=== PATIENT | female | born 1950 | race Caucasian/White ===

== ENCOUNTER 2016-08-14 18:17 | Inpatient (IN) | payer MEDICARE ==
--- NOTE | 2016-08-14 18:33 | ED ---
General Adult HPI - General Chief complaint: Neuro Symptoms/Deficit Stated complaint: left side numbness Time Seen by Provider: 08/14/16 18:25 Source: patient, EMS, RN notes reviewed, old records reviewed Mode of arrival: EMS - History of Present Illness Initial comments: This is a 66-year-old female ER for evaluation. This patient presents for evaluation of CVA type symptoms. Patient has no high blood pressure or cholesterol no diabetes or no risk factors for CVA no prior history of CVA. Patient takes no medications. Patient coming in with left-sided weakness left sided facial droop noted by family, 3 different times seen in a detention did resolve. Patient denies any complaints at this time, symptoms are resolved and patient brought here by family. - Related Data Home Medications Medication Instructions Recorded Confirmed Calcium Carbonate/Vitamin D3 1 tab PO DAILY 08/14/16 08/14/16 [Calcium 500-Vit D3 600 Tablet] Multivitamins, Thera [Multivitamin] 1 tab PO DAILY 08/14/16 08/14/16 Mize-3 Fatty Acids/Fish Oil [Fish 1 cap PO DAILY 08/14/16 08/14/16 Oil 1,000 mg Softgel] Omeprazole 20 mg PO DAILY 08/14/16 08/14/16 Potassium 99 mg PO DAILY 08/14/16 08/14/16 Allergies Allergy/AdvReac Type Severity Reaction Status Date / Time Sulfa (Sulfonamide Allergy Rash/Hives Verified 08/14/16 19:14 Antibiotics) Review of Systems ROS Statement: Those systems with pertinent positive or pertinent negative responses have been documented in the HPI. ROS Other: All systems not noted in ROS Statement are negative. Past Medical History Past Medical History: No Reported History History of Any Multi-Drug Resistant Organisms: None Reported Past Surgical History: No Surgical Hx Reported Past Psychological History: No Psychological Hx Reported Smoking Status: Former smoker Past Alcohol Use History: None Reported Past Drug Use History: None Reported General Exam General appearance: alert, in no apparent distress Head exam: Present: atraumatic, normocephalic, normal inspection Eye exam: Present: normal appearance, PERRL, EOMI. Absent: scleral icterus, conjunctival injection, periorbital swelling ENT exam: Present: normal exam, mucous membranes moist Neck exam: Present: normal inspection. Absent: tenderness, meningismus, lymphadenopathy Respiratory exam: Present: normal lung sounds bilaterally. Absent: respiratory distress, wheezes, rales, rhonchi, stridor Cardiovascular Exam: Present: regular rate, normal rhythm, normal heart sounds. Absent: systolic murmur, diastolic murmur, rubs, gallop, clicks GI/Abdominal exam: Present: soft, normal bowel sounds. Absent: distended, tenderness, guarding, rebound, rigid Extremities exam: Present: normal inspection, full ROM, normal capillary refill. Absent: tenderness, pedal edema, joint swelling, calf tenderness Back exam: Present: normal inspection Neurological exam: Present: alert, oriented X3, CN II-XII intact Psychiatric exam: Present: normal affect, normal mood Skin exam: Present: warm, dry, intact, normal color. Absent: rash Course Vital Signs 08/14/16 08/14/16 18:23 19:30 Temperature 97.7 F Pulse Rate 74 72 Respiratory 18 16 Rate Blood Pressure 171/93 141/94 O2 Sat by Pulse 96 98 Oximetry - Reevaluation(s) Reevaluation #1: 08/14/16 20:04 Patient remains asymptomatic EKG Findings - EKG Comments: EKG Findings:: EKG shows normal sinus her wrist, [place] 136, QRS 98, QTC 427 Medical Decision Making - Medical Decision Making 66 female here for evaluation of CVA type symptoms, patient left-sided weakness numbness and facial droop. Patient will be admitted is TIA is also symptoms are resolved this time, but on aspirin with neurological evaluation, patient also found to have urinary tract infection which will she with antibiotics - Lab Data Result diagrams: 08/14/16 19:09 08/14/16 19:09 Lab Results 08/14/16 08/14/16 08/14/16 Range/Units 19:09 19:09 19:09 WBC 16.3 H (3.8-10.6) k/uL RBC 4.40 (3.80-5.40) m/uL Hgb 13.9 (11.4-16.0) gm/dL Hct 41.6 (34.0-46.0) % MCV 94.6 (80.0-100.0) fL MCH 31.6 (25.0-35.0) pg MCHC 33.4 (31.0-37.0) g/dL RDW 13.1 (11.5-15.5) % Plt Count 264 (150-450) k/uL Neutrophils % 85 % Lymphocytes % 9 % Monocytes % 3 % Eosinophils % 1 % Basophils % 0 % Neutrophils # 13.8 H (1.3-7.7) k/uL Lymphocytes # 1.5 (1.0-4.8) k/uL Monocytes # 0.5 (0-1.0) k/uL Eosinophils # 0.1 (0-0.7) k/uL Basophils # 0.1 (0-0.2) k/uL PT 10.1 (9.0-12.0) sec INR 1.0 (<1.1) APTT 23.2 (22.0-30.0) sec Sodium 137 (137-145) mmol/L Potassium 4.1 (3.5-5.1) mmol/L Chloride 103 (98-107) mmol/L Carbon Dioxide 25 (22-30) mmol/L Anion Gap 9 mmol/L BUN 10 (7-17) mg/dL Creatinine 0.56 (0.52-1.04) mg/dL Est GFR (MDRD) Af Amer >60 (>60 ml/min/1.73 sqM) Est GFR (MDRD) Non-Af >60 (>60 ml/min/1.73 sqM) Glucose 120 H (74-99) mg/dL Calcium 10.0 (8.4-10.2) mg/dL Phosphorus 3.3 (2.5-4.5) mg/dL Magnesium 1.9 (1.6-2.3) mg/dL Total Bilirubin 0.4 (0.2-1.3) mg/dL AST 23 (14-36) U/L ALT 42 (9-52) U/L Alkaline Phosphatase 108 (38-126) U/L Total Creatine Kinase (30-135) U/L CK-MB (CK-2) (0.0-2.4) ng/mL CK-MB (CK-2) Rel Index Troponin I (0.000-0.034) ng/mL Total Protein 7.0 (6.3-8.2) g/dL Albumin 4.3 (3.5-5.0) g/dL Urine Color Urine Appearance (Clear) Urine pH (5.0-8.0) Ur Specific Hutchinson (1.001-1.035) Urine Protein (Negative) Urine Glucose (UA) (Negative) Urine Ketones (Negative) Urine Blood (Negative) Urine Nitrate (Negative) Urine Bilirubin (Negative) Urine Urobilinogen (<2.0) mg/dL Ur Leukocyte Esterase (Negative) Urine RBC (0-5) /hpf Urine WBC (0-5) /hpf Urine Bacteria (None) /hpf Hyaline Casts (0-2) /lpf Urine Yeast (Budding) (None) /hpf 08/14/16 08/14/16 Range/Units 19:09 19:35 WBC (3.8-10.6) k/uL RBC (3.80-5.40) m/uL Hgb (11.4-16.0) gm/dL Hct (34.0-46.0) % MCV (80.0-100.0) fL MCH (25.0-35.0) pg MCHC (31.0-37.0) g/dL RDW (11.5-15.5) % Plt Count (150-450) k/uL Neutrophils % % Lymphocytes % % Monocytes % % Eosinophils % % Basophils % % Neutrophils # (1.3-7.7) k/uL Lymphocytes # (1.0-4.8) k/uL Monocytes # (0-1.0) k/uL Eosinophils # (0-0.7) k/uL Basophils # (0-0.2) k/uL PT (9.0-12.0) sec INR (<1.1) APTT (22.0-30.0) sec Sodium (137-145) mmol/L Potassium (3.5-5.1) mmol/L Chloride (98-107) mmol/L Carbon Dioxide (22-30) mmol/L Anion Gap mmol/L BUN (7-17) mg/dL Creatinine (0.52-1.04) mg/dL Est GFR (MDRD) Af Amer (>60 ml/min/1.73 sqM) Est GFR (MDRD) Non-Af (>60 ml/min/1.73 sqM) Glucose (74-99) mg/dL Calcium (8.4-10.2) mg/dL Phosphorus (2.5-4.5) mg/dL Magnesium (1.6-2.3) mg/dL Total Bilirubin (0.2-1.3) mg/dL AST (14-36) U/L ALT (9-52) U/L Alkaline Phosphatase (38-126) U/L Total Creatine Kinase 40 (30-135) U/L CK-MB (CK-2) 0.8 (0.0-2.4) ng/mL CK-MB (CK-2) Rel Index 2.0 Troponin I <0.012 (0.000-0.034) ng/mL Total Protein (6.3-8.2) g/dL Albumin (3.5-5.0) g/dL Urine Color Yellow Urine Appearance Cloudy H (Clear) Urine pH 7.5 (5.0-8.0) Ur Specific Hutchinson 1.008 (1.001-1.035) Urine Protein Negative (Negative) Urine Glucose (UA) Negative (Negative) Urine Ketones Negative (Negative) Urine Blood Negative (Negative) Urine Nitrate Negative (Negative) Urine Bilirubin Negative (Negative) Urine Urobilinogen <2.0 (<2.0) mg/dL Ur Leukocyte Esterase Large H (Negative) Urine RBC 3 (0-5) /hpf Urine WBC 57 H (0-5) /hpf Urine Bacteria Rare H (None) /hpf Hyaline Casts 2 (0-2) /lpf Urine Yeast (Budding) Many H (None) /hpf - Radiology Data Radiology results: report reviewed (CT brain negative for acute disease), image reviewed Disposition Clinical Impression: Transient cerebral ischemia, UTI (urinary tract infection) Disposition: ADMITTED IP TO THIS [facility] Condition: Fair Referrals: Reno Escoto DO [Primary Care Provider] - 1-2 days
[2016-08-14] MEDS ORDERED: SODIUM CHLORIDE 0.9% 500 ML IV STA (18:35)
--- NOTE | 2016-08-14 19:02 | CT ---
EXAMINATION TYPE: CT brain wo con DATE OF EXAM: 08/14/2016 6:53 PM COMPARISON: NONE HISTORY: Pt states of left side numbness today. CT DLP: 1049.[address] of the brain was performed. The ventricles, basal cisterns and sulci overlying the cerebral convexities demonstrate mild enlargem ent. There is no evidence for intracranial hemorrhage or sulcal effacement. There is decreased attenuation about the periventricular white matter and deep white matter of both c erebral hemispheres, compatible with chronic small vessel ischemia. Differential diagnosis does inclu de demyelination. No mass effects are seen.No midline shift. Osseous calvarium is intact. If symptoms persist consider MRI. IMPRESSION: 1. Age related atrophic and chronic small vessel ischemic change without acute intracranial process s een at this time.
[2016-08-14 19:24] LABS: Basophils # (A) 0.1 k/uL (0-0.2); Basophils % (A) 0 %; CH 31.4; CHCM 33.3; Eosinophils # (A) 0.1 k/uL (0-0.7); Eosinophils % (A) 1 %; HCT 41.6 % (34.0-46.0); HDW 2.67; HGB 13.9 gm/dL (11.4-16.0); Luc # (Auto) 0.29; Luc % (Auto) 2; Lymphocytes # (A) 1.5 k/uL (1.0-4.8); Lymphocytes % (A) 9 %; MCH 31.6 pg (25.0-35.0); MCHC 33.4 g/dL (31.0-37.0); MCV 94.6 fL (80.0-100.0); Mean Platelet Volume 7.8; Monocytes # (A) 0.5 k/uL (0-1.0); Monocytes % (A) 3 %; Neutrophils # (A) 13.8 k/uL (1.3-7.7); Neutrophils % (A) 85 %; RDW 13.1 % (11.5-15.5); WBC 16.3 k/uL (3.8-10.6); WBC (Perox) 16.97
[2016-08-14 19:39] LABS: Partial Thromboplastin Time 23.2 sec (22.0-30.0); Prothrombin Time 10.1 sec (9.0-12.0)
[2016-08-14 19:41] LABS: ALT 42 U/L (9-52); AST 23 U/L (14-36); Alkaline Phosphatase 108 U/L (38-126); Anion Gap 9 mmol/L; Blood Urea Nitrogen 10 mg/dL (7-17); Carbon Dioxide 25 mmol/L (22-30); Chloride 103 mmol/L (98-107); Glucose 120 mg/dL (74-99); Magnesium 1.9 mg/dL (1.6-2.3); Non-African American GFR(MDRD) >60 (>60 ml/min/1.73 sqM); Phosphorous 3.3 mg/dL (2.5-4.5); Potassium 4.1 mmol/L (3.5-5.1); Sodium 137 mmol/L (137-145); Total Bilirubin 0.4 mg/dL (0.2-1.3)
[2016-08-14 19:48] LABS: Creatine Kinase 40 U/L (30-135)
[2016-08-14 19:55] LABS: Appearance,Urine Cloudy (Clear); Bacteria,Urine Rare /hpf; Bilirubin,Urine Negative (Negative); Glucose,Urine (UA) Negative (Negative); Ketones,Urine Negative (Negative); Leukocyte Esterase,Urine Large (Negative); Nitrite,Urine Negative (Negative); PH, Urine 7.5 (5.0-8.0); Particle Count 14116; Protein,Urine Negative (Negative); RBC,Urine 3 /hpf (0-5); Specific Gravity,Urine 1.008 (1.001-1.035); UA Billing (MACRO vs. MICRO) MICRO; Urobilinogen,Urine <2.0 mg/dL (<2.0); WBC,Urine 57 /hpf (0-5)
[2016-08-14 20:01] LABS: Creatine Kinase MB 0.8 ng/mL (0.0-2.4); Troponin I <0.012 ng/mL (0.000-0.034)
[2016-08-14] MEDS ORDERED: ASPIRIN 325 MG TAB PO STA (20:02)
[2016-08-14] MEDS: SODIUM CHLORIDE 0.9% 1,000 ML IV SCH (20:19)
[2016-08-14 21:59] VITALS: RESP 18; BMI 29.5
[2016-08-15] MEDS: SODIUM CHLORIDE 0.9% 1,000 ML IV SCH (06:19)
[2016-08-15] MEDS ORDERED: ASPIRIN 325 MG TAB PO SCH (09:00)
[2016-08-15 09:05] VITALS: PULSE 80
--- NOTE | 2016-08-15 09:34 | ECHOF ---
Referral Reason:Thrombus MEASUREMENTS -------- HEIGHT: 162.6 cm WEIGHT: 77.6 kg BP: 142/81 RVIDd: 2.3 cm (< 3.3) IVSd: 0.8 cm (0.6 - 1.1) LVIDd: 4.9 cm (3.9 - 5.3) LVPWd: 1.0 cm (0.6 - 1.1) IVSs: 1.7 cm LVIDs: 3.4 cm LVPWs: 1.4 cm LA Diam: 2.8 cm (2.7 - 3.8) LAESV Index (A-L): 26.74 ml/m Ao Diam: 3.0 cm (2.0 - 3.7) AV Cusp: 1.4 cm (1.5 - 2.6) LA Diam: 2.8 cm (2.7 - 3.8) MV EXCURSION: 12.842 mm (> 18.000) MV EF SLOPE: 32 mm/s (70 - 150) EPSS: 0.5 cm MV E Tera: 0.96 m/s MV DecT: 234 ms MV A Tera: 1.16 m/s MV E/A Ratio: 0.83 FINDINGS -------- Sinus rhythm. This was a technically good study. Left ventricular wall thickness is normal. Overall left ventricular systolic function is normal with, an EF between 55 - 60 %. The right ventricle is normal in size. Normal LA size by volume 22+/-6 ml/m2. The right atrium is normal in size. Aortic valve is trileaflet and is mildly thickened. The mitral valve leaflets are mildly thickened. Mild mitral annular calcification present. Trace tricuspid regurgitation present. Pulmonic valve appears structurally normal. The aortic root size is normal. Normal inferior vena cava with normal inspiratory collapse consistent with estimated right atrial pressure of 5 mmHg. Echo free space may represent effusion or a pericardial fat pad. CONCLUSIONS -------- 1. Sinus rhythm. 2. Mild mitral annular calcification present. 3. Trace tricuspid regurgitation present. 4. Pulmonic valve appears structurally normal. 5. The aortic root size is normal. 6. Normal inferior vena cava with normal inspiratory collapse consistent with estimated right atrial pressure of 5 mmHg. 7. Echo free space may represent effusion or a pericardial fat pad. 8. This was a technically good study. 9. Left ventricular wall thickness is normal. 10. Overall left ventricular systolic function is normal with, an EF between 55 - 60 %. 11. The right ventricle is normal in size. 12. Normal LA size by volume 22+/-6 ml/m2. 13. The right atrium is normal in size. 14. Aortic valve is trileaflet and is mildly thickened. 15. The mitral valve leaflets are mildly thickened. SENIOR PROGRAMMER: Alison Alba RDCS
--- NOTE | 2016-08-15 10:14 | US ---
EXAMINATION TYPE: US carotid duplex BILAT DATE OF EXAM: 08/15/2016 9:51 AM COMPARISON: NONE CLINICAL HISTORY: Stenosis. EXAM MEASUREMENTS: RIGHT: Peak Systolic Velocity (PSV) cm/sec ----- Right CCA: 86.6 ----- Right ICA: 130.3 ----- Right ECA: 99.3 ICA/CCA ratio: 1.5 RIGHT: End Diastole cm/sec ----- Right CCA: 32.6 ----- Right ICA: 34.9 ----- Right ECA: 18.4 LEFT: Peak Systolic Velocity (PSV) cm/sec ----- Left CCA: 86.6 ----- Left ICA: 109.3 ----- Left ECA: 82.4 ICA/CCA ratio: 1.3 LEFT: End Diastole cm/sec ----- Left CCA: 23.8 ----- Left ICA: 33.3 ----- Left ECA: 20.5 VERTEBRALS (direction of flow): Right Vertebral: Antegrade Left Vertebral: not visualized No significant atheromatous change. Grayscale, color Doppler, spectral Doppler imaging performed of the carotid arteries IMPRESSION: No hemodynamic significant stenosis of the proximal internal carotid arteries bilaterall y by Doppler criteria, and indirect measurement of carotid stenosis
[2016-08-15] MEDS ORDERED: FLUCONAZOLE 100 MG TAB PO ONE (12:29)
[2016-08-15 13:00] VITALS: BP 146/88; TEMP 98.5
--- NOTE | 2016-08-15 14:13 | HP ---
HISTORY AND PHYSICAL/DISCHARGE SUMMARY DATE OF ADMISSION: A 66-year-old female who came in came in with complaints of tingling and numbness in the left arm, lasted for a few minutes, followed by tingling and numbness in the left leg, followed by left-sided facial tingling, numbness. All of which resolved within 5 minutes. Patient denied any slurred speech. Patient denied any fever, chills, nausea, vomiting. Denied any dysuria. Patient is found to have some elevated WBC count in the urine because of which patient was diagnosed with UTI and was admitted here on Rocephin and also patient is admitted for rule out TIA and a CVA. Patient does not take any aspirin. Patient does not have any history of diabetes mellitus, hypertension, or hyperlipidemia although lipid panel was not tested here. Patient's previous lipid panel was essentially within normal limits. Patient had a carotid Doppler and echocardiogram, essentially within normal limits. Patient will be discharged today with aspirin and a low dose of statin until LDL is done as an outpatient. Patient will follow with Neurology as an outpatient. REVIEW OF SYSTEMS: CONSTITUTIONAL: No fever, no malaise, no fatigue. HEENT: No recent visual problems or hearing problems. Denied any sore throat. CARDIOVASCULAR: No chest pain, orthopnea, PND, no palpitations, no syncope. PULMONARY: No shortness of breath, no cough, no hemoptysis. GASTROINTESTINAL: No diarrhea, no nausea, no vomiting, no abdominal pain. Normoactive bowel sounds. NEUROLOGICAL: As described in HPI. HEMATOLOGICAL: Denies any bleeding or petechiae. GENITOURINARY: Denies any burning micturition, frequency, or urgency. MUSCULOSKELETAL/RHEUMATOLOGICAL: Denies any joint pain, swelling, or any muscle pain. ENDOCRINE: Denies any polyuria or polydipsia. The rest of the 14 point review of systems is negative. HOME MEDICATIONS: 1. Calcium carbonate. 2. Vitamin D3. 3. Multivitamin. 4. Gaffney 3 fatty acids. 5. Omeprazole. 6. Potassium. 7. Sulfa drugs. PAST MEDICAL HISTORY: No significant past medical history. SOCIAL HISTORY: Former smoker. Quit smoking years ago. Denied any alcohol abuse or any drug abuse. FAMILY HISTORY: The patient is adopted, because of which patient's family history is unknown. PHYSICAL EXAMINATION: Temperature 98.0, pulse of 80, respiratory rate of 18, blood pressure is 150/90, lowest blood pressure is around 125/71. GENERAL: The patient is alert and oriented x3, not in any acute distress. Well developed, well nourished. HEENT: Pupils are round and equally reacting to light. EOMI. No scleral icterus. No conjunctival pallor. Normocephalic, atraumatic. No pharyngeal erythema. No thyromegaly. CARDIOVASCULAR: S1 and S2 present. No murmurs, rubs, or gallops. PULMONARY: Chest is clear to auscultation, no wheezing or crackles. ABDOMEN: Soft, nontender, nondistended, normoactive bowel sounds. No palpable organomegaly. MUSCULOSKELETAL: No joint swelling or deformity. EXTREMITIES: No cyanosis, clubbing, or pedal edema. NEUROLOGICAL: Gross neurological examination did not reveal any focal deficits. SKIN: No rashes. LABORATORY DATA: CBC, CMP, essentially within normal limits except for elevated WBC count of 16,300. Patient received 2 doses of Rocephin for UTI. UA cloudy appearance and large leukocyte esterase. WBC count of 57, rare bacteria and budding yeast, many. CT of the head is essentially negative. Echocardiogram and carotid Doppler as mentioned above. ASSESSMENT AND PLAN: 1. Transient ischemic attack. Patient probably has pure sensory stroke or a transient ischemic attack involving the ventral posterolateral nucleus that is VPL nucleus of thalamus, although patient's symptoms completely resolved. Patient will be started on aspirin and a statin, will be discharged today with follow up with Dr. Olivo as an outpatient. Neurology as an outpatient. 2. Asymptomatic bacteria which does not warrant any antibiotics, leukocytosis, I believe is a reactive response from her transient ischemic attack. This patient is completely asymptomatic and anyways received 2 doses of antibiotic. 3. Candiduria, because of the antibiotics, I will give her a dose of fluconazole before her discharge. 4. This dictation is both H&P and discharge summary and patient will follow with Dr. Reno Escoto in 3 to 7 days. Activity as tolerated. Follow up with Dr. Olivo as mentioned above. Cardiac diet and appropriate way to check the blood sugars. Counseling regarding appropriate way measuring blood sugars was done.
== END 2016-08-15 13:41 | disposition home or self-care (01) | DRG 69 ==
LOC: EC 18:17 → 6SEL 20:03
PROVIDERS: ADMIT Hospitalist; ATTEND Hospitalist
DX: G45.8 Other transient cerebral ischemic attacks and related syndromes (principal); B37.49 Other urogenital candidiasis; D72.829 Elevated white blood cell count, unspecified; R29.810 Facial weakness; R53.1 Weakness; T37.0X5A Adverse effect of sulfonamides, initial encounter; R29.700 NIHSS score 0; Z88.2 Allergy status to sulfonamides; Z87.891 Personal history of nicotine dependence; Z79.899 Other long term (current) drug therapy
CPT/HCPCS: 36415; 70450; 80053; 81001; 82550; 82553; 83735; 84100; 84484; 85025; 85610; 85730; 87040; 87086; 93005; 93306; 93880; 94760; 96361; 96365; 99285

== ENCOUNTER 2016-08-25 12:48 | Observation (INO) | payer MEDICARE ==
[2016-08-25] MEDS ORDERED: ASPIRIN 81 MG CHEW PO STA (13:16)
[2016-08-25] MEDS ORDERED: NITROGLYCERIN OINT 1 INCH/GM PACKET TOPICAL STA (13:16)
[2016-08-25] MEDS ORDERED: MORPHINE SULFATE 2 MG/ML SYRINGE IVP STA (13:18)
[2016-08-25 13:51] LABS: Basophils # (A) 0.1 k/uL (0-0.2); Basophils % (A) 1 %; CH 31.4; Eosinophils # (A) 0.1 k/uL (0-0.7); Eosinophils % (A) 1 %; HCT 43.3 % (34.0-46.0); HDW 2.62; HGB 14.7 gm/dL (11.4-16.0); Luc # (Auto) 0.29; Luc % (Auto) 3; Lymphocytes # (A) 1.7 k/uL (1.0-4.8); Lymphocytes % (A) 20 %; MCH 30.6 pg (25.0-35.0); MCHC 33.9 g/dL (31.0-37.0); MCV 90.3 fL (80.0-100.0); Mean Platelet Volume 7.3; Monocytes # (A) 0.4 k/uL (0-1.0); Monocytes % (A) 5 %; Neutrophils % (A) 70 %; RDW 12.7 % (11.5-15.5); WBC 8.5 k/uL (3.8-10.6)
[2016-08-25 14:01] LABS: ALT 28 U/L (9-52); AST 24 U/L (14-36); Alkaline Phosphatase 107 U/L (38-126); Anion Gap 14 mmol/L; Blood Urea Nitrogen 15 mg/dL (7-17); Calcium 10.4 mg/dL (8.4-10.2); Carbon Dioxide 24 mmol/L (22-30); Chloride 104 mmol/L (98-107); Glucose 103 mg/dL (74-99); Magnesium 1.7 mg/dL (1.6-2.3); Non-African American GFR(MDRD) >60 (>60 ml/min/1.73 sqM); Potassium 3.7 mmol/L (3.5-5.1); Sodium 142 mmol/L (137-145); Total Bilirubin 0.7 mg/dL (0.2-1.3); Total Protein 7.4 g/dL (6.3-8.2)
--- NOTE | 2016-08-25 14:01 | XR ---
EXAMINATION TYPE: XR chest 2V DATE OF EXAM: 08/25/2016 1:44 PM COMPARISON: NONE HISTORY: Chest pain TECHNIQUE: Frontal and lateral views of the chest are obtained. FINDINGS: Heart is normal. Lungs are clear of consolidation. There are no hilar masses. There are ch est leads. Costophrenic angles are clear of fluid. There is small linear density at the lateral right lung base. Bony thorax appears intact. IMPRESSION: Minimal subsegmental atelectasis at the right lung base. Normal heart.
[2016-08-25 14:03] LABS: Partial Thromboplastin Time 23.9 sec (22.0-30.0); Prothrombin Time 10.4 sec (9.0-12.0)
--- NOTE | 2016-08-25 14:04 | ED ---
General Adult HPI - General Chief complaint: Shortness of Breath Stated complaint: SOB/Numbness Time Seen by Provider: 08/25/16 13:00 Source: patient Mode of arrival: wheelchair Limitations: no limitations - History of Present Illness Initial comments: This 66-year-old white female presents with a complaint of some left chest pressure described as a tightness which is associated with some shortness of breath. The onset occurred at approximately 10:30 AM today. It will usually last approximately 2 minutes but is always slightly present. This also associated with some left hand/finger tingling. It will occur while at rest. She denies any known cardiac problems. She's never had a stress test. She denies any leg pain or swelling or history of DVT or PE. It is been intermittent in nature and there is a slight pleuritic component. She apparently was here approximately one week ago and was diagnosed with a TIA at that time. She had a negative workup which did include a computed tomography scan of the brain, carotid Dopplers, an echocardiogram. She also followed up with her primary doctor approximately 5 days ago and was placed on a cholesterol and blood pressure medication. She denies any other complaints or modifying factors. - Related Data Home Medications Medication Instructions Recorded Confirmed Calcium Carbonate/Vitamin D3 1 tab PO DAILY 08/14/16 08/25/16 [Calcium 500-Vit D3 600 Tablet] Multivitamins, Thera [Multivitamin] 1 tab PO DAILY 08/14/16 08/25/16 Donora-3 Fatty Acids/Fish Oil [Fish 1 cap PO DAILY 08/14/16 08/25/16 Oil 1,000 mg Softgel] Omeprazole 20 mg PO DAILY 08/14/16 08/25/16 Potassium 99 mg PO DAILY 08/14/16 08/25/16 Hydrochlorothiazide [Hydrodiuril] 25 mg PO DAILY 08/25/16 08/25/16 Ibuprofen [Motrin] 800 mg PO Q8HR PRN 08/25/16 08/25/16 Previous Rx's Medication Instructions Recorded Aspirin [Adult Low Dose Aspirin EC] 81 mg PO DAILY #30 tablet. 08/15/16 Atorvastatin [Lipitor] 10 mg PO HS #30 tab 08/15/16 Allergies Allergy/AdvReac Type Severity Reaction Status Date / Time Sulfa (Sulfonamide Allergy Rash/Hives Verified 08/25/16 13:22 Antibiotics) Review of Systems ROS Statement: Those systems with pertinent positive or pertinent negative responses have been documented in the HPI. ROS Other: All systems not noted in ROS Statement are negative. Past Medical History Past Medical History: CVA/TIA History of Any Multi-Drug Resistant Organisms: None Reported Past Surgical History: No Surgical Hx Reported Past Psychological History: No Psychological Hx Reported Smoking Status: Former smoker Past Alcohol Use History: None Reported Past Drug Use History: None Reported General Exam - General Exam Comments Initial Comments: GENERAL: The patient is well nourished and well hydrated. VITAL SIGNS: Heart rate, blood pressure, respiratory rate reviewed as recorded in nurse's notes. EYES: Pupils are round and reactive. Extraocular movements are intact. No conjunctival / lid redness or swelling. ENT: No external evidence of injury, swelling, or ecchymosis. Airway is patent. Throat is clear. NECK: Nontender. No swelling or evidence of injury. No subcutaneous emphysema. Trachea is midline. No thyroid mass. HEART: Regular rate and rhythm. Good peripheral pulses. LUNGS/CHEST: Breath sounds clear and equal bilaterally. No rales, rhonchi, or wheezes. No ecchymosis, subcutaneous emphysema, or tenderness. ABDOMEN: Abdomen soft without tenderness. No palpable masses or organomegaly. No peritoneal signs. No abdominal wall swelling or ecchymosis. EXTREMITIES: No extremity tenderness. Normal muscle tone and function. No thoracolumbar tenderness. NEUROLOGIC: Sensation is grossly intact. Cranial nerve exam reveals face is symmetrical, tongue is midline, speech is clear. SKIN: No abrasions or ecchymosis is noted. No induration or masses noted. PSYCHIATRIC: Alert and oriented. Appropriate behavior and judgment. Limitations: no limitations Course Vital Signs 08/25/16 08/25/16 08/25/16 12:50 13:54 14:18 Temperature 97.8 F Pulse Rate 68 81 Pulse Rate [ 80 Right Radial] Respiratory 20 18 Rate Blood Pressure 170/88 146/82 O2 Sat by Pulse 98 98 Oximetry Medical Decision Making - Medical Decision Making The patient was seen and examined. All diagnostics were reviewed. An EKG shows a normal sinus rhythm at a rate of 75 there is some nonspecific ST-T wave changes noted in the anteroseptal leads. The NM interval is 176, QRS duration is 102, and the QTc interval is 431. An IV is established and she was received 2 mg of morphine IV, and aspirin, and Nitropaste. Laboratories reviewed and chest x-ray is completed. The chest x-ray showed some possible atelectasis in the right lung. Laboratory is all essentially within normal limits. She is feeling much improved with nitroglycerin paste to the chest wall and an aspirin. It is felt as though she would benefit from admission to the hospital for further treatment. She is agreeable. Case is discussed with Dr. Rea and he is agreeable to admission. - Lab Data Result diagrams: 08/25/16 13:25 08/25/16 13:25 Lab Results 08/25/16 08/25/16 08/25/16 Range/Units 13:25 13:25 13:25 WBC 8.5 (3.8-10.6) k/uL RBC 4.80 (3.80-5.40) m/uL Hgb 14.7 (11.4-16.0) gm/dL Hct 43.3 (34.0-46.0) % MCV 90.3 (80.0-100.0) fL MCH 30.6 (25.0-35.0) pg MCHC 33.9 (31.0-37.0) g/dL RDW 12.7 (11.5-15.5) % Plt Count 293 (150-450) k/uL Neutrophils % 70 % Lymphocytes % 20 % Monocytes % 5 % Eosinophils % 1 % Basophils % 1 % Neutrophils # 6.0 (1.3-7.7) k/uL Lymphocytes # 1.7 (1.0-4.8) k/uL Monocytes # 0.4 (0-1.0) k/uL Eosinophils # 0.1 (0-0.7) k/uL Basophils # 0.1 (0-0.2) k/uL PT (9.0-12.0) sec INR (<1.1) APTT (22.0-30.0) sec D-Dimer (<0.60) mg/L FEU Sodium 142 (137-145) mmol/L Potassium 3.7 (3.5-5.1) mmol/L Chloride 104 (98-107) mmol/L Carbon Dioxide 24 (22-30) mmol/L Anion Gap 14 mmol/L BUN 15 (7-17) mg/dL Creatinine 0.78 (0.52-1.04) mg/dL Est GFR (MDRD) Af Amer >60 (>60 ml/min/1.73 sqM) Est GFR (MDRD) Non-Af >60 (>60 ml/min/1.73 sqM) Glucose 103 H (74-99) mg/dL Calcium 10.4 H (8.4-10.2) mg/dL Magnesium 1.7 (1.6-2.3) mg/dL Total Bilirubin 0.7 (0.2-1.3) mg/dL AST 24 (14-36) U/L ALT 28 (9-52) U/L Alkaline Phosphatase 107 (38-126) U/L Total Creatine Kinase 53 (30-135) U/L CK-MB (CK-2) 1.0 (0.0-2.4) ng/mL CK-MB (CK-2) Rel Index 1.9 Troponin I <0.012 (0.000-0.034) ng/mL NT-Pro-B Natriuret Pep pg/mL Total Protein 7.4 (6.3-8.2) g/dL Albumin 4.6 (3.5-5.0) g/dL 08/25/16 08/25/16 Range/Units 13:25 13:25 WBC (3.8-10.6) k/uL RBC (3.80-5.40) m/uL Hgb (11.4-16.0) gm/dL Hct (34.0-46.0) % MCV (80.0-100.0) fL MCH (25.0-35.0) pg MCHC (31.0-37.0) g/dL RDW (11.5-15.5) % Plt Count (150-450) k/uL Neutrophils % % Lymphocytes % % Monocytes % % Eosinophils % % Basophils % % Neutrophils # (1.3-7.7) k/uL Lymphocytes # (1.0-4.8) k/uL Monocytes # (0-1.0) k/uL Eosinophils # (0-0.7) k/uL Basophils # (0-0.2) k/uL PT 10.4 (9.0-12.0) sec INR 1.0 (<1.1) APTT 23.9 (22.0-30.0) sec D-Dimer 0.37 (<0.60) mg/L FEU Sodium (137-145) mmol/L Potassium (3.5-5.1) mmol/L Chloride (98-107) mmol/L Carbon Dioxide (22-30) mmol/L Anion Gap mmol/L BUN (7-17) mg/dL Creatinine (0.52-1.04) mg/dL Est GFR (MDRD) Af Amer (>60 ml/min/1.73 sqM) Est GFR (MDRD) Non-Af (>60 ml/min/1.73 sqM) Glucose (74-99) mg/dL Calcium (8.4-10.2) mg/dL Magnesium (1.6-2.3) mg/dL Total Bilirubin (0.2-1.3) mg/dL AST (14-36) U/L ALT (9-52) U/L Alkaline Phosphatase (38-126) U/L Total Creatine Kinase (30-135) U/L CK-MB (CK-2) (0.0-2.4) ng/mL CK-MB (CK-2) Rel Index Troponin I (0.000-0.034) ng/mL NT-Pro-B Natriuret Pep 43 pg/mL Total Protein (6.3-8.2) g/dL Albumin (3.5-5.0) g/dL Disposition Clinical Impression: Chest pain, Dyspnea, Hypertension, Unstable angina Disposition: ADMITTED IP TO THIS [facility] Time of Disposition: 14:51 Decision Date: 08/25/16 Decision Time: 14:51
[2016-08-25 14:16] LABS: Creatine Kinase 53 U/L (30-135)
[2016-08-25 14:29] LABS: Troponin I <0.012 ng/mL (0.000-0.034)
[2016-08-25] MEDS ORDERED: HEPARIN SODIUM,PORCINE 5,000 UNIT/ML 1 ML VIAL IV PRN (14:52)
[2016-08-25] MEDS ORDERED: HEPARIN SODIUM,PORCINE 5,000 UNIT/ML 1 ML VIAL IV ONE (14:52)
[2016-08-25] MEDS ORDERED: NITROGLYCERIN SL TABS 0.4 MG TAB SUBLINGUAL PRN (14:52)
[2016-08-25] MEDS ORDERED: IBUPROFEN 800 MG TAB PO PRN (14:55)
[2016-08-25] MEDS ORDERED: HEPARIN SODIUM,PORCINE/D5W PMX 25,000 UNIT in DEXTROSE/WATER 1 500ML.BAG IV SCH (15:00)
[2016-08-25 16:28] VITALS: BMI 28.3
[2016-08-25] MEDS: NITROGLYCERIN OINT 1 INCH/GM PACKET TOPICAL SCH (17:40)
[2016-08-25] MEDS: ATORVASTATIN 10 MG TAB PO SCH (20:26)
[2016-08-25] MEDS: METOPROLOL TARTRATE 25 MG TAB PO SCH (21:37)
[2016-08-25 22:37] LABS: Creatine Kinase 35 U/L (30-135)
[2016-08-25 22:51] LABS: Creatine Kinase MB 0.7 ng/mL (0.0-2.4); Troponin I <0.012 ng/mL (0.000-0.034)
[2016-08-25] MEDS: ACETAMINOPHEN TAB 325 MG TAB PO PRN (23:21)
[2016-08-26 03:26] LABS: Creatine Kinase 35 U/L (30-135)
[2016-08-26 03:34] LABS: Basophils # (A) 0.1 k/uL (0-0.2); Basophils % (A) 1 %; CH 31.4; CHCM 34.1; Eosinophils # (A) 0.2 k/uL (0-0.7); Eosinophils % (A) 2 %; HCT 41.2 % (34.0-46.0); HDW 2.63; HGB 13.4 gm/dL (11.4-16.0); Luc # (Auto) 0.37; Luc % (Auto) 5; Lymphocytes # (A) 2.9 k/uL (1.0-4.8); Lymphocytes % (A) 36 %; MCH 30.1 pg (25.0-35.0); MCHC 32.5 g/dL (31.0-37.0); MCV 92.6 fL (80.0-100.0); Mean Platelet Volume 7.1; Monocytes # (A) 0.5 k/uL (0-1.0); Monocytes % (A) 6 %; Neutrophils # (A) 4.2 k/uL (1.3-7.7); Neutrophils % (A) 51 %; RBC 4.45 m/uL (3.80-5.40); RDW 12.7 % (11.5-15.5); WBC 8.2 k/uL (3.8-10.6)
[2016-08-26 03:39] LABS: Creatine Kinase MB 0.7 ng/mL (0.0-2.4); Troponin I <0.012 ng/mL (0.000-0.034)
[2016-08-26 03:48] LABS: Anion Gap 11 mmol/L; Blood Urea Nitrogen 15 mg/dL (7-17); Calcium 9.5 mg/dL (8.4-10.2); Carbon Dioxide 24 mmol/L (22-30); Chloride 107 mmol/L (98-107); Cholesterol 162 mg/dL (<200); Glucose 121 mg/dL (74-99); HDL Cholesterol 62 mg/dL (40-60); Non-African American GFR(MDRD) >60 (>60 ml/min/1.73 sqM); Potassium 3.2 mmol/L (3.5-5.1); Sodium 142 mmol/L (137-145); Triglycerides 74 mg/dL (<150)
[2016-08-26] MEDS: NITROGLYCERIN OINT 1 INCH/GM PACKET TOPICAL SCH ×6 (04:57→23:18)
[2016-08-26] MEDS: ACETAMINOPHEN TAB 325 MG TAB PO PRN (07:42)
[2016-08-26] MEDS ORDERED: NON-FORMULARY DRUG (Omega-3 Fatty Acids/Fish Oil [Fish Oil 1,000 Mg Softgel] 1 CAP) PO SCH (09:00)
[2016-08-26] MEDS ORDERED: HYDROCHLOROTHIAZIDE 25 MG TAB PO SCH (09:00)
[2016-08-26] MEDS ORDERED: traMADol 50 MG TAB PO PRN (10:17)
[2016-08-26] MEDS: METOPROLOL TARTRATE 25 MG TAB PO SCH ×3 (10:28→21:18)
[2016-08-26] MEDS: ASPIRIN 325 MG TAB PO SCH (10:47)
[2016-08-26] MEDS: PANTOPRAZOLE 40 MG TABLET PO SCH (10:47)
[2016-08-26] MEDS: POTASSIUM CHLORIDE ORAL LIQUID 40 MEQ/30 ML CUP PO SCH (10:48)
[2016-08-26] MEDS: MULTIVITAMINS, THERA 1 EACH TAB PO SCH (10:48)
--- NOTE | 2016-08-26 11:42 | HP ---
DATE OF ADMISSION: 08/25/2016 CHIEF COMPLAINT: Chest pain. HISTORY OF PRESENT ILLNESS: Ms. Kay is a 66 -year-old female with a known history of recent TIA came to the hospital with complaints of chest pressure mainly in the left breast area, about 6 out of 10 in intensity lasting about 2 minutes but the patient denied any associated nausea, vomiting, diaphoresis, headache or dizziness. Patient was admitted to the hospital recently with TIA-like symptoms with tingling sensation in the left arm and legs as well as in the face mainly below the left rib and pressure-like sensation and worsens slightly with deep breathing. Otherwise, the patient denied any fever or chills. No recent flu symptoms. No recent sick contacts at home. Patient had a recent work-up including 2-D echo. Carotid Duplex was done. The patient had ( ) recently up for stroke work-up. The patient was recently diagnosed with hypertension, hyperlipidemia, and was placed on blood pressure medication and cholesterol medications. Currently denied any other complaints now. Patient does take Motrin on and off pain for arthritic pain. Patient took it this morning and the EKG in the ER shows sinus rhythm with occasional premature ventricular contraction and chest x-ray minimal subsegmental atelectasis at the right lung base. Normal heart. REVIEW OF SYSTEMS: CONSTITUTIONAL: No fever. No chills. RESPIRATORY: No cough or sputum production. CARDIOVASCULAR: Patient does have chest pressure. No leg swelling. No palpitations. ABDOMEN: No nausea, vomiting or abdominal pain. GENITOURINARY: Negative. ENDOCRINE: Negative. PSYCHIATRIC: Negative. SKIN: Negative. All other fourteen-point review of systems negative except as above. Patient has initial troponin and EKG negative. PAST MEDICAL HISTORY: History of transient ischemic attack about a week ago, Recently diagnosed with hypertension and hyperlipidemia. PAST SURGICAL HISTORY: None. Denied psychosocial history. SOCIAL HISTORY: Patient is a former smoker, quit several years ago. Denied any alcohol, drugs or IVDU. FAMILY HISTORY: Patient is adopted and does not know her family history. ALLERGIES: SULFA. Home medications include: 1. Calcium with Vitamin D3. 2. Multivitamins. 3. [place]-3 fatty acid. 4. Omeprazole. 5. Protonix. 6. Hydrochlorothiazide. 7. Ibuprofen. PHYSICAL EXAMINATION: A 68-year-old female, lying in bed comfortably, awake, alert, oriented, x3 appears to be in no apparent distress. VITALS: Blood pressure is 170/88, pulse 68, respirations 20, temperature afebrile, pulse ox 98% on room air on admission. HEENT: Atraumatic, normocephalic. Neck is supple. No JVD. CVS: S1, S2 heard. No murmurs, no gallop, no rub. LUNGS: Bilateral air entry is present. No wheezing. No crackles. ABDOMEN: Soft, nontender. Bowel sounds are present. BEAM DOFFER: Awake, alert, oriented, x3. No focal deficit. EXTREMITIES: No edema. Pulses palpable bilaterally. No clubbing or cyanosis. PSYCHIATRIC: Cooperative. LABORATORY DATA: WBC ( ) hemoglobin 14.7, platelets 293, MCV 90.3, INR 1.0. D-dimer is 0.37 not elevated. Sodium 142, potassium 3.7, chloride 104, bicarb 24, BUN ( ) creatinine 0.78. Glucose 103, calcium 10.4. Magnesium 1.7. Troponin less than 0.012, NT-proBNP is 43, albumin 4.6. EKG normal sinus rhythm with premature ventricular contractions and chest x-ray right ( ) minimal subsegmental atelectasis. IMPRESSION: 1. Atypical chest pain rule out acute coronary syndrome. 2. Recent transient ischemic attack, stroke work-up including 2-D echo and carotid duplex and CT negative at that time. 3. Hypertension. 4. Hyperlipidemia. 5. Previous history of smoking. 6. Mild hypercalcemia. Check vitamin D3 level and hold Vitamin D and calcium supplement. 7. Osteoarthritis. DISCUSSION AND PLAN: A 66 -year-old female admitted to the hospital with complaints of chest pressure below the left rib, otherwise, tingling sensation most likely atypical chest pain, rule out acute coronary syndrome. Chest pain could be related to GERD-like symptoms as well. Will continue with the patient Prilosec the patient is taking and hold Motrin at this time. Will hold calcium supplementation as well. Will check Vitamin D3 level and currently patient was started on heparin IV. Cardiology has been consulted for further elevation. Continue with serial EKG and troponins. Further recommendations based on the clinical course. D-dimer is not elevated, unlikely DVT or PE at this time.
[2016-08-26] MEDS ORDERED: CALCIUM CARB-VIT D 500MG-200UN 1 EACH TAB PO SCH (12:00)
--- NOTE | 2016-08-26 13:06 | CONS ---
DATE OF CONSULTATION: Mrs. Kay is a 66-year-old female who came to the emergency room with the complaint of chest pain. Patient gives a history that she started having chest discomfort in the left inframammary area. Pain was kind of dull aching or sharp pain associated with some shortness of breath, it usually lasted for 2 to 3 minutes. Because of the pain, patient came to the emergency room. In the emergency room, patient initial blood pressure was high. She was given nitroglycerin with relief of the pain. The blood pressure came down. The patient recently was admitted with symptoms suggestive of TIA prior to the one week, the patient was healthy without any symptoms of chest discomfort or shortness of breath. No prior cardiac history of myocardial infarction or hypertension. Patient was started on a small dose of blood pressure pill and cholesterol pill after discharge from the hospital. Patient work-up in the hospital including CT scan and carotid duplex was normal. The patient denies any history of heart fluttering or palpitations. Home medications include: 1. Multivitamin. 2. [place]-Diuril 25 mg daily. 3. Ibuprofen p.r.n. 4. Lipitor 10 mg daily. Review of systems is otherwise unremarkable. SOCIAL HISTORY: Patient is a former smoker. Physical examination at present reveals a 66-year-old female who does not appear to be in any acute distress. Patient's blood pressure now is 148/93 millimeters of Hg. Head/ENT examination is negative. Neck is supple. There is no increase in jugular venous pressure. Both the carotid pulses are felt. There is no bruit. Chest is symmetrical. HEART: The PMI is not felt. First and second heart sounds are normal. There is no evidence of any murmur. Lungs are clinically clear to auscultation and percussion. ABDOMEN: Soft. Liver and spleen are not enlarged. Bowel sounds are heard. EXTREMITIES: Peripheral pulsations are 2+. There is no evidence of any edema or phlebitis. Neurological examination is grossly normal. EKG shows normal sinus rhythm with a nonspecific T wave changes. Patient's potassium was 3.2, which could be secondary to hydro-Diuril. Patient's LDL level is 85 and 3 sets troponins are normal. BNP level was 43. FINAL IMPRESSION: 1. Chest pain suggestive of atypical angina. EKGs and cardiac enzymes are normal. 2. Recent history suggestive of possible transient ischemic attack. RECOMMENDATIONS: Patient's recent echocardiogram is normal. She will be evaluated with a stress echocardiographic study and further neurological work-up including MRI is suggested and if there is any suspicious of any TIA, then patient can be considered for MAUREEN as an outpatient.
[2016-08-26] MEDS ORDERED: MORPHINE SULFATE 2 MG/ML SYRINGE IVP PRN (17:05)
[2016-08-26] MEDS ORDERED: RX INFO: IV CONTRAST WAS GIVEN 1 EACH MISC MISCELLANE PRN (17:07)
[2016-08-26] MEDS ORDERED: POTASSIUM CHLORIDE ORAL LIQUID 40 MEQ/30 ML CUP PO ONE (17:20)
[2016-08-26] MEDS ORDERED: LABETALOL SYRINGE 5 MG/ML IVP STA (17:36)
[2016-08-26] MEDS ORDERED: LABETALOL 5 MG/ML VIAL MDV IVP STA (17:44)
--- NOTE | 2016-08-26 18:04 | CT ---
EXAMINATION TYPE: CT brain wo con DATE OF EXAM: 08/26/2016 5:59 PM COMPARISON: 08/14/2016 HISTORY: Patient complains of facial tingling. CT DLP: 815.1 mGycm Automated exposure control for dose reduction was used. FINDINGS: Ventricles of normal size. There is no mass effect nor midline shift. There is no sign of intracrania l hemorrhage. Calvarium is intact. IMPRESSION: Negative unenhanced head CT scan. No change.
--- NOTE | 2016-08-26 18:08 | CT ---
EXAMINATION TYPE: CT angio chest DATE OF EXAM: 08/26/2016 6:01 PM COMPARISON: NONE HISTORY: Patient complains of new onset chest pain today. CT DLP: 327.1 mGycm Automated exposure control for dose reduction was used. CONTRAST: CTA scan of the thorax is performed with IV Contrast, patient injected with 100 mL of Omnipaque 350, pulmonary embolism protocol. . FINDINGS: There are 3-D post processed images. Lungs are clear of consolidation. There is mild atelectasis at the lung bases. There is no pleural ef fusion. There is no sign of a pulmonary mass. Thoracic aorta shows mild atheromatous change. There is no evidence of aneurysm or dissection. I see no filling defects in the pulmonary arteries. There is no mediastinal adenopathy. There are no hilar masses. There is no pericardial effusion. The bony thorax appears intact. There appears to be some st enosis of 50% of the proximal celiac artery. IMPRESSION: NO EVIDENCE OF PULMONARY EMBOLISM. MILD ATELECTASIS AT THE POSTERIOR LUNG BASES. MILD ATHEROSCLEROTIC VASCULAR DISEASE.
[2016-08-26] MEDS ORDERED: LORazepam 2 MG/ML SYRINGE IV PRN (18:46)
[2016-08-26] MEDS: ATORVASTATIN 10 MG TAB PO SCH (21:18)
[2016-08-27] MEDS: NITROGLYCERIN OINT 1 INCH/GM PACKET TOPICAL SCH ×4 (06:33→23:07)
[2016-08-27] MEDS: PANTOPRAZOLE 40 MG TABLET PO SCH (06:35)
[2016-08-27 06:43] LABS: Basophils % (A) 0 %; Eosinophils # (A) 0.1 k/uL (0-0.7); Eosinophils % (A) 2 %; HCT 39.3 % (34.0-46.0); HDW 2.68; HGB 12.9 gm/dL (11.4-16.0); Luc # (Auto) 0.27; Luc % (Auto) 3; Lymphocytes # (A) 1.7 k/uL (1.0-4.8); Lymphocytes % (A) 21 %; MCH 30.1 pg (25.0-35.0); MCHC 32.8 g/dL (31.0-37.0); MCV 91.6 fL (80.0-100.0); Mean Platelet Volume 7.1; Monocytes # (A) 0.5 k/uL (0-1.0); Monocytes % (A) 5 %; Neutrophils # (A) 5.8 k/uL (1.3-7.7); Neutrophils % (A) 69 %; RBC 4.29 m/uL (3.80-5.40); RDW 12.9 % (11.5-15.5); WBC 8.4 k/uL (3.8-10.6); WBC (Perox) 9.06
[2016-08-27 06:54] LABS: Anion Gap 11 mmol/L; Blood Urea Nitrogen 11 mg/dL (7-17); Calcium 9.6 mg/dL (8.4-10.2); Carbon Dioxide 21 mmol/L (22-30); Chloride 110 mmol/L (98-107); Glucose 119 mg/dL (74-99); Non-African American GFR(MDRD) >60 (>60 ml/min/1.73 sqM); Potassium 4.1 mmol/L (3.5-5.1); Sodium 142 mmol/L (137-145)
[2016-08-27] MEDS ORDERED: amLODIPine 5 MG TAB PO STA (09:00)
--- NOTE | 2016-08-27 11:01 | PN ---
DATE OF SERVICE: 08/26/2016 INTERVAL HISTORY: Ms. Kay is a 66-year-old female with a known history of recent TIA-like symptoms with tingling sensation on the left side with negative neurological work-up including CT head, carotid duplex and 2-D echo, came back to the hospital with complaints of chest pressure, pressure mainly in the left breast area. Patient apparently has been having this chest pressure on and off. D-dimer is negative. Chest x-ray showed no pneumonia. The patient once again had uncontrolled blood pressure this afternoon as well as worsening chest pressure below the left breast. Patient also had twitching movements in the abdominal wall and has been shaky. Patient did not lose any consciousness. Patient had a CT head and CT angiogram of the chest was done, showed no abnormality. Patient was started on Ativan 1 mg q.6 hourly p.r.n. for anxiety. Otherwise, patient is more comfortable now. Patient's family is at bedside. REVIEW OF SYSTEMS: CONSTITUTIONAL: No fever. No chills. RESPIRATORY: No cough or sputum production. CARDIOVASCULAR: No chest pain or short of breath. No leg swelling. ABDOMEN: No nausea, vomiting, abdominal pain. GENITOURINARY: Negative. ENDOCRINE: Negative. PSYCHIATRY: Negative. SKIN: Negative. MUSCULOSKELETAL: Negative. All other 14-point review of systems negative except as above. Patient's potassium is 3.2 this morning which has improved to 3.8 with supplementation. CURRENT MEDICATIONS: Reviewed. PHYSICAL EXAMINATION: A 66-year-old female lying in the bed comfortably, awake, alert, oriented x3. Appears to be in no distress now. VITALS: Blood pressure is 150/87, pulse is 70, respirations 18, temperature afebrile, pulse ox 98% on 2 L nasal cannula. HEENT: Atraumatic, normocephalic. Neck is supple. No JVD. CVS EXAM: S1 and S2 heard. No murmurs, no gallop. LUNGS: Patient denied any chest pressure with palpation. No tenderness. Abdomen is soft, nontender. The bowel sounds present. LUNGS: Bilateral air entry is present. No wheezing. No crackles. Decreased breath sounds basally. EQUIPMENT SERVICES ASSOCIATE: Awake, alert, oriented x3. No focal neurologic deficits. EXTREMITIES: No edema. Pulses palpable bilaterally, no clubbing or cyanosis. PSYCHIATRIC: Cooperative. LABORATORY DATA: WBC 8.2, hemoglobin 10.4, platelets of 259. Sodium 142, potassium 3.2, chloride 107, bicarb is 24. BUN 15, creatinine 0.6. Blood sugar is 121, calcium 9.5, troponin x3 negative, LDL is 62, TSH is 2.15. ( ) is negative and chest CT no pulmonary embolism, no masses, no infiltrates noted. IMPRESSION: 1. Apical chest pain/angina. Serial EKGs and troponins are negative. Cardiology is planning for a stress test for tomorrow morning. 2. Recent admission with transient ischemic attack-like symptoms. Stroke work-up and 2-D echo, carotid duplex and CT head is negative at that time. 3. Intermittent chest pressure and anxiety. 4. Negative d-dimer level. 5. Recently diagnosed hypertension, hydrochlorothiazide has been changed to metoprolol as per Cardiology. 6. Hyperlipidemia. 7. Previous history of smoking. 8. Hypercalcemia, improved. 9. Vitamin D supplementation is on hold. 10. Osteoarthritis. DISCUSSION AND PLAN: Patient will be transferred to telemetry unit and continue the blood pressure medication in the form of metoprolol as per Cardiology and continue the pain management with morphine and anxiolytics will be added. Will try to limit narcotic medication patient was also started on Tramadol. Continue with the heparin IV and follow up closely. Cardiology is planning for stress test tomorrow. Further recommendations based on the clinical course.
--- NOTE | 2016-08-27 11:02 | P.PN ---
Subjective Principal diagnosis: Chest pain This is a 66-year-old female who presented to the hospital with symptoms of chest pain. She did have mild associated shortness of breath. On presentation here her blood pressure was significantly elevated, she was given sublingual nitroglycerin with reduction in pain and blood pressure. Patient also has had a recent history suggestive of possible TIA and a neuro workup is currently being performed. This morning blood pressure is 154 systolic, she scheduled to undergo stress echocardiographic study today. CTA of the chest was performed which did not reveal any evidence of a pulmonary embolism. CAT scan of the brain negative. At the time of my examination this morning, patient denies any chest pain or difficulty breathing Objective - Vital Signs Vital signs: Vital Signs Temp 96.7 F L 08/27/16 07:40 Pulse 82 08/27/16 07:40 Resp 16 08/27/16 07:46 BP 154/95 08/27/16 07:40 Pulse Ox 96 08/27/16 07:40 Intake & Output 08/26/16 08/27/16 08/27/16 18:59 06:59 18:59 Weight 75 kg Other: Voiding Method Toilet Toilet Toilet - Labs CBC & Chem 7: 08/27/16 06:24 08/27/16 06:24 Labs: Abnormal Lab Results - Last 24 Hours (Table) 08/27/16 Range/Units 06:24 Chloride 110 H (98-107) mmol/L Carbon Dioxide 21 L (22-30) mmol/L Glucose 119 H (74-99) mg/dL Assessment and Plan (1) Chest pain Status: Acute (2) Hypertension Status: Acute Plan: Patient scheduled today to undergo an echo cardiac exam with Doppler study along with stress test. Further recommendations will be based on these findings and the patient's clinical course. DNP note has been reviewed, I agree with a documented findings and plan of care. Patient was seen and examined.
--- NOTE | 2016-08-27 12:53 | ECHOS ---
DATE OF SERVICE: 08/27/2016 AGE: 66Y SEX: F HT: 64" WT: 166 lbs. Protocol Darryl: X Others: Stress Echo Stage: 3 Dur. of Exercise: 7:00 *Heart Rate Blood Pressure *Rest: 87 Rest: 194/94 * *Max. Achieved: 141 Maximum BP: 190/110 85% PMHR: 131 100% PMHR: 154 *METS: 8.1 INDICATIONS: Chest pain. MEDICATIONS: - Baseline rhythm is sinus mechanism, rate of 87, normal axis and intervals, poor R-wave progression. Baseline blood pressure 194/94 mmHg. Patient exercised on Darryl protocol for 7 minutes reaching peak rate of 141 beats per minute, which was equal to 91% maximum predicted heart rate; peak blood pressure 190/110 mmHg. Test was terminated due to fatigue and no chest pain. Electrocardiograph monitoring revealed no evidence of diagnostic ischemic ST deviation. FINDINGS: Baseline echocardiogram revealed normal wall motion at peak exercise. There was normal wall motion and augmentation with no hypokinesis or dyskinesis. CONCLUSION: 1. Average exercise tolerance with normal electrocardiograph response to exercise. 2. Normal stress echocardiogram with no evidence of stress-induced ischemia.
[2016-08-27] MEDS: METOPROLOL TARTRATE 25 MG TAB PO SCH ×2 (13:51→19:59)
[2016-08-27] MEDS: ASPIRIN 325 MG TAB PO SCH (13:51)
[2016-08-27] MEDS: POTASSIUM CHLORIDE ORAL LIQUID 40 MEQ/30 ML CUP PO SCH (13:52)
[2016-08-27] MEDS: MULTIVITAMINS, THERA 1 EACH TAB PO SCH (13:52)
[2016-08-27] MEDS: ATORVASTATIN 10 MG TAB PO SCH (19:59)
[2016-08-28] MEDS: NITROGLYCERIN OINT 1 INCH/GM PACKET TOPICAL SCH ×2 (06:30→10:47)
[2016-08-28] MEDS: PANTOPRAZOLE 40 MG TABLET PO SCH (06:30)
[2016-08-28 06:35] VITALS: RESP 16
[2016-08-28] MEDS: ASPIRIN 325 MG TAB PO SCH (09:00)
[2016-08-28] MEDS: METOPROLOL TARTRATE 25 MG TAB PO SCH (09:00)
[2016-08-28] MEDS: POTASSIUM CHLORIDE ORAL LIQUID 40 MEQ/30 ML CUP PO SCH (09:00)
--- NOTE | 2016-08-28 09:37 | P.CONS ---
History of Present Illness - Reason for Consult Consult date: 08/28/16 Epigastric pain Requesting physician: Kody Rea - History of Present Illness 66-year-old female patient Dr. Escoto with a past medical history of GERD, recent hospitalization for TIA on aspirin therapy, and hypertension. Presents with mid sternal left chest wall pain became onset and Saturday. Stress test/ echo negative for ischemia. CT chest negative for PE. Patient has had intermittent GERD-like symptoms with burning indigestion for a few years and has been taking [id number] Prilosec without improvement. No history of EGD. Denies hematemesis hematochezia melena fever chills or weight loss. No changes in appetite. Pain is intermittent and sometimes burning along the upper esophageal region as well in the midepigastrium. Symptoms seem to exacerbate with food. Hemoglobin 12.9. White count 8.4. LFTs within normal limits. Denies alcohol or excessive NSAID usage. Review of Systems Constitutional: Denies fever, chills, sweats, weight gain, or loss. HEENT: Negative for migraines, blurred vision or loss, earaches, drainage, tinnitus, oral mucosal lesions, dysphagia, or odynophagia. CARDIAC: See HPI ; chest pain, denies arrhythmias, or palpitation. Hypertension. RESPIRATORY: Negative for shortness of breath, hemoptysis, cough, or sputum production. GI: See HPI for pertinent findings. : Negative for hematuria, urgency, frequency, polyuria, or dysuria. GYNc: Denies possibility of . Negative vaginal discharge. MUSCULOSKELETAL: Negative for muscle aches, swelling, arthritis, and arthralgias. NEUROLOGIC: Negative for stroke or TIA. ENDOCRINE: Negative for thyroid problems. SKIN: Negative for rash or itching. PSYCHIATRIC: Negative history for depression and anxiety All systems: negative (See HPI) Past Medical History Past Medical History: CVA/TIA, GERD/Reflux, Hypertension History of Any Multi-Drug Resistant Organisms: None Reported Past Surgical History: No Surgical Hx Reported Additional Past Surgical History / Comment(s): colonscopy Past Anesthesia/Blood Transfusion Reactions: No Reported Reaction Past Psychological History: No Psychological Hx Reported Smoking Status: Former smoker Past Alcohol Use History: None Reported Past Drug Use History: None Reported - Past Family History Father History Unknown: Yes Additional Family Medical History / Comment(s): pt adopted unkown family history Medications and Allergies Home Medications Medication Instructions Recorded Confirmed Type Calcium Carbonate/Vitamin D3 1 tab PO DAILY 08/14/16 08/25/16 History [Calcium 500-Vit D3 600 Tablet] Multivitamins, Thera [Multivitamin 1 tab PO DAILY 08/14/16 08/25/16 History (formulary)] [place]-3 Fatty Acids/Fish Oil [Fish 1 cap PO DAILY 08/14/16 08/25/16 History Oil 1,000 mg Softgel] Omeprazole 20 mg PO DAILY 08/14/16 08/25/16 History Potassium 99 mg PO DAILY 08/14/16 08/25/16 History Allergies Allergy/AdvReac Type Severity Reaction Status Date / Time Sulfa (Sulfonamide Allergy Rash/Hives Verified 08/25/16 13:22 Antibiotics) Physical Exam Vitals: Vital Signs Temp Pulse Resp BP BP Pulse Ox 08/28/16 09:25 97 08/28/16 07:30 97.1 F L 77 16 137/82 97 08/28/16 06:34 65 16 128/80 95 08/27/16 23:00 97.9 F 71 18 123/82 98 08/27/16 20:03 82 126/81 95 08/27/16 15:31 98.4 F 75 17 162/85 97 08/27/16 15:30 16 08/27/16 11:46 98.0 F 92 16 141/88 97 Intake and Output 08/27/16 08/28/16 08/28/16 22:59 06:59 14:59 Intake Total 250 120 Output Total 300 Balance 250 -300 120 Intake: Oral 250 120 Output: Urine 300 Other: Voiding Method Toilet Toilet # Voids 1 0 1 Weight 74.4 kg General appearance: The patient is alert, oriented, in no acute distress. HET: Head is normocephalic and atraumatic. Pupils are equal and reactive. Oropharynx is clear without lesions. Neck: Supple without lymphadenopathy. Trachea midline. Heart: S1 S2. Regular rate and rhythm. Lungs: No crackles or wheezes are heard. Abdomen: Soft, nontender, nondistended with bowel sounds. No peritoneal signs. No palpable organomegaly or masses. Extremities: Normal skin color and turgor. No cyanosis, rash, ulceration, clubbing, or edema. Radial and pedal pulses are 2/4 bilaterally. Neurological: No focal deficits. Strength and sensation are grossly intact. Results CBC & Chem 7: 08/27/16 06:24 08/27/16 06:24 Assessment and Plan (1) Epigastric pain Narrative/Plan: Suspect GERD possible peptic ulcer disease other differential to consider is possible gallbladder pathology. Status: Acute (2) Chest pain Status: Acute (3) Transient cerebral ischemia Narrative/Plan: Recent hospitalization for TIA Status: Resolved Plan: 1. Patient is requesting discharge today. We'll proceed with outpatient EGD evaluation tomorrow. Continue with light diet today. Nothing by mouth after midnight. Presurgical screening to notify patient with additional instructions and time. Case discussed with Dr. Batista he is agreeable with plan of care. Continue with omeprazole 20 mg daily. The network strategist has discussed the risks, benefits and alternative therapies for the above-mentioned procedure and for both sedation/analgesia as well as necessary blood product administration, if indicated, as they pertain to this patient. The patient has indicated understanding and acceptance of the risks and procedures discussed. Thank you for this kind referral and the opportunity to participate in the care of your patient. This consultation was discussed with Dr. Barnett. The impression and plan of care have been directed as dictated.
[2016-08-28] MEDS ORDERED: CALCIUM CARBONATE 500 MG CHEWABLE PO PRN (10:16)
--- NOTE | 2016-08-28 10:18 | PN ---
DATE OF SERVICE: INTERVAL HISTORY: Ms. Kay is a 66-year-old female with a known history of TIA-like symptoms about a week back with tingling sensation on the left side with negative work-up. Came back to the hospital with complaints of chest pressure at the level of the left breast area. The patient got a chest x-ray which was negative. CT angiogram showed no PE and no bony abnormalities and d-dimer is negative as well. Patient underwent stress echocardiogram showed no inducible stress-induced ischemia noted. Otherwise the patient is still having complaints of chest pressure, but improved compared to yesterday. As per the family, the patient's daughter spoke to her primary care physician who suggested GI consultation. The family insisted on GI consultation at this time. The patient does not have any nausea or vomiting. No headache or dizziness. Tolerating p.o. diet. Patient seems to be more anxious and improving with Ativan every 6 hours. Blood pressure is also controlled now. Patient was taking hydrochlorothiazide at home, changed to metoprolol as per Cardiology. REVIEW OF SYSTEMS: CONSTITUTIONAL: No fever. No chills. RESPIRATORY: No cough or sputum production. CARDIOVASCULAR: No chest pain, but patient does have left-sided chest pressure. No short of breath. No leg swelling. ABDOMEN: No nausea, vomiting, or abdominal pain. GENITOURINARY: No dysuria or hematuria. ENDOCRINE: Negative. PSYCHIATRIC: Anxious. SKIN: Tumors and ulcers negative. All other fourteen-point review of systems as above. CURRENT MEDICATIONS: Reviewed. PHYSICAL EXAMINATION: A 66-year-old female lying in bed, awake, alert, oriented x3, appears to be in no apparent distress. VITALS: Blood pressure is 123/82, pulse is 71, respirations 18, temperature afebrile, pulse ox 98% on room air. HEENT: Atraumatic, normocephalic. NECK: Supple. No JVD. CVS: S1, S2 heard. No murmurs, gallops or rubs. LUNGS: Bilateral air entry is present. No wheezing. No crackles. Nonlabored breathing. ABDOMEN: Soft, nontender. Bowel sounds are present. AUTO ADJUDICATION SPECIALIST: Awake, alert, oriented, x3. No focal deficit. EXTREMITIES: No edema. Pulses palpable bilaterally. No clubbing or cyanosis. PSYCHIATRIC: Cooperative. LABORATORY DATA: Hemoglobin 12.9, platelets are 263, sodium 142, potassium 4.1, chloride 110, bicarb is 21, BUN 11, creatinine 0.6, calcium 9.6, TSH 2.1. Vitamin D level is 31.0. LDL is 85. IMPRESSION: 1. Atypical chest pain. Ruled out acute coronary syndrome. Stress echo negative. 2. Ongoing chest pressure to the left breast area. 3. Hypertension, controlled now. 4. Recently diagnosed hypertension and hyperlipidemia. 5. Previous history of smoking. 6. Hypercalcemia, improved. Normal vitamin D3 level. 7. Degenerative joint disease. 8. Possible underlying anxiety. DISCUSSION: The patient will be continued on telemetry monitoring. Continue the blood pressure medication in the form of metoprolol. Cardiology is following this patient. Gastroenterology has been consulted, evaluation by Gastroenterology upon family's insistence. Continue current treatment.
[2016-08-28] MEDS: MULTIVITAMINS, THERA 1 EACH TAB PO SCH (10:44)
--- NOTE | 2016-08-28 12:03 | P.PN ---
Subjective Principal diagnosis: Chest pain This is a 66-year-old female who presented to the hospital with symptoms of chest pain. She did have mild associated shortness of breath. On presentation here her blood pressure was significantly elevated, she was given sublingual nitroglycerin with reduction in pain and blood pressure. Patient also has had a recent history suggestive of possible TIA and a neuro workup is currently being performed. Patient underwent a stress echocardiographic study that was negative for any reversible ischemia. The pressure this morning 138/80 with a heart rate in the 70s. She is currently on Lopressor 25 mg one tablet by mouth twice a day. From cardiology's perspective she may be able to be discharged home today. We will make her a follow-up appointment with Dr. VC Mckeon in the office post discharge. We will also recommended an event monitor post discharge. Objective - Vital Signs Vital signs: Vital Signs Temp 97.8 F 08/28/16 11:52 Pulse 77 08/28/16 07:30 Resp 16 08/28/16 11:52 BP 156/87 08/28/16 11:52 Pulse Ox 96 08/28/16 11:52 Intake & Output 08/27/16 08/28/16 08/28/16 18:59 06:59 18:59 Intake Total 250 120 Output Total 300 Balance -50 120 Weight 74.4 kg Intake: Oral 250 120 Output: Urine 300 Other: Voiding Method Toilet Toilet # Voids 0 1 - Exam PHYSICAL EXAMINATION: HEENT: Head is atraumatic, normocephalic. Pupils equal, round. Neck is supple. There is no elevated jugular venous pressure. HEART EXAMINATION: Heart S1, S2 normal. No murmur or gallop heard. CHEST EXAMINATION: Lungs are clear to auscultation and precussion. No chest wall tenderness is noted on palpation or with deep breathing. ABDOMEN: Soft, nontender. Bowel sounds are heard. No organomegaly noted. EXTREMITIES: 2+ peripheral pulses with no evidence of peripheral edema and no calf tenderness noted. NEUROLOGIC patient is awake, alert and oriented -3. . - Labs CBC & Chem 7: 08/27/16 06:24 08/27/16 06:24 Assessment and Plan (1) Chest pain Status: Acute (2) Hypertension Status: Acute Plan: Cardiology's perspective, patient may be able to be discharged home today. We will make her a follow-up appointment to see Dr. VC Mckeon in the office post discharge. We also recommend the patient have an event monitor post discharge. DNP note has been reviewed, I agree with a documented findings and plan of care. Patient was seen and examined.
[2016-08-28] MEDS: ACETAMINOPHEN TAB 325 MG TAB PO PRN (12:26)
[2016-08-28 14:57] VITALS: BP 158/100; PULSE 79; TEMP 96
--- NOTE | 2016-08-28 17:28 | P.DS ---
Providers Date of admission: 08/25/16 14:52 Attending physician: Vladislav Rea [facility] Course: 66-year-old female comes in the hospital with complains of chest pain around her left breast radiating to the epigastric region. Patient was given nitroglycerin and was noted to have some decrease in blood pressure. Patient was noted to have an elevated blood pressure on initial evaluation. Patient was apparently seen in the hospital for TIA-like symptoms at that time was also noted to have elevated blood pressure. Patient underwent a stress test which was negative for any reversible ischemia. This wasn't stress echocardiogram. Patient was started on Lopressor 25 mg by mouth twice a day. During the time of my evaluation however patient's blood pressure was in the 150s to 170s systolic. Patient has have any chest pain, difficulty breathing, nausea, vomiting. Patient apparently was having some orange juice the morning of the discharge was noted to have some discomfort immediately thereafter. Patient was also evaluated by genetic counselor is recommend a follow up outpatient the day after discharge for an upper endoscopy. Physical exam Gen. appearance oriented 3 in no distress Neck is supple no JVD Lungs good air entry clear to auscultation no rhonchi or wheezing Heart S1-S2 heard regular rate and rhythm no murmurs appreciated Abdomen is soft nontender no organomegaly bowel sounds are intact Neurologically cranial nerves II-12 grossly intact no focal motor or sensory deficits noted Skin no abnormalities appreciated Discharge diagnoses Atypical chest pain ACS was ruled out #2 gastritis #3 accelerated hypertension #4 dyslipidemia Plan Patient will be discharged home on metoprolol 25 mg by mouth twice a day and will be started on HCTZ 12.5 mg by mouth daily. Patient is recommended to recheck her blood pressures. Is to follow up with cardiology on outpatient basis. Plan - Discharge Summary New Discharge Prescriptions: Hydrochlorothiazide 12.5 mg PO DAILY #30 capsule Metoprolol Tartrate [Lopressor] 25 mg PO BID #60 tab Discharge Medication List Calcium Carbonate/Vitamin D3 [Calcium 500-Vit D3 600 Tablet] 1 tab PO DAILY [History] Multivitamins, Thera [Multivitamin (formulary)] 1 tab PO DAILY 08/14/16 [History ] [place]-3 Fatty Acids/Fish Oil [Fish Oil 1,000 mg Softgel] 1 cap PO DAILY [History] Omeprazole 20 mg PO DAILY 08/14/16 [History] Potassium 99 mg PO DAILY 08/14/16 [History] Aspirin [Adult Low Dose Aspirin EC] 81 mg PO DAILY #30 tablet. 08/15/16 [Rx] Atorvastatin [Lipitor] 10 mg PO HS #30 tab 08/15/16 [Rx] Hydrochlorothiazide 12.5 mg PO DAILY #30 capsule 08/28/16 [Rx] Metoprolol Tartrate [Lopressor] 25 mg PO BID #60 tab 08/28/16 [Rx] Follow up Appointment(s)/Referral(s): Reno Escoto DO [Primary Care Provider] - 3 Days Elisabet Mckeon MD [STAFF PHYSICIAN] - 09/14/16 3:45 pm Activity/Diet/Wound Care/Special Instructions: Confirm Cardiology F/U appt. prior to dc 30 Day Event Monitor Diet: Cardiac Activity: limited TIll F/U Outpatient EGD scheduled 08/29/[address] Barnett at [facility]. Presurgical screening 2 notify patient with additional instructions and arrival time. Light diet today followed by nothing by mouth after midnight. No aspirin or NSAIDs prior to EGD. Discharge Disposition: HOME SELF-CARE
[2016-08-29] MEDS ORDERED: ASPIRIN 81 MG CHEW PO SCH (09:00)
== END 2016-08-28 16:18 | disposition home or self-care (01) ==
LOC: EC 12:48 → 3OBS 14:52 → 6SEL 08-26 17:43
PROVIDERS: ADMIT Hospitalist; ATTEND Hospitalist
DX: R07.89 Other chest pain (principal); K29.70 Gastritis, unspecified, without bleeding; I10 Essential (primary) hypertension; E78.5 Hyperlipidemia, unspecified; E83.52 Hypercalcemia; F41.9 Anxiety disorder, unspecified; G45.9 Transient cerebral ischemic attack, unspecified; I49.3 Ventricular premature depolarization; K21.9 Gastro-esophageal reflux disease without esophagitis; M19.90 Unspecified osteoarthritis, unspecified site; Z79.82 Long term (current) use of aspirin; Z79.899 Other long term (current) drug therapy; Z87.891 Personal history of nicotine dependence; Z88.2 Allergy status to sulfonamides; R06.02 Shortness of breath
CPT/HCPCS: 36415; 94760; 93005; 93017; 93350; 85379; 83880; 80061; 80053; 80048 ×2; 84443; 82550 ×2; 82553 ×2; 83735; 84132; 84484 ×2; 85025 ×3; 85610; 85730 ×2; 82306; 71020; 70450; 71275; 99285; 96375; 96376; G0378 ×5; J2060; J1644 ×2; Q9967; J2270 ×2; 96365; 96366

== ENCOUNTER 2016-08-29 09:53 | Day surgery (SDC) | payer MEDICARE ==
[2016-08-29 10:26] VITALS: TEMP 97
[2016-08-29] MEDS ORDERED: LIDOCAINE 1% 20 ML VIAL (10MG/ML) FOR IV START INTRADERMA ONE (10:31)
[2016-08-29] MEDS ORDERED: LACTATED RINGERS 1,000 ML IV ONE (10:31)
[2016-08-29] MEDS ORDERED: LIDOCAINE 1% INJ 10MG/ML (20 ML MDV) ONE (11:20)
[2016-08-29] MEDS ORDERED: PROPOFOL 10 MG/ML 20 ML VIAL IV ONE (11:20)
--- NOTE | 2016-08-29 11:34 | P.PCN ---
Date of Procedure: 08/29/16 Procedure(s) Performed: BRIEF HISTORY: Patient is a excessive 6-year-old, pleasant, white female, admitted to the hospital with severe epigastric pain and chest pain 2 days ago. Chronic workup was negative. She is scheduled for an upper endoscopy to evaluate for possible gastroesophageal reflux causing her symptoms PROCEDURE PERFORMED: Esophagogastroduodenoscopy with biopsy . PREOPERATIVE DIAGNOSIS: Epigastric pain and heartburn IV sedation per anesthesia. PROCEDURE: After informed consent was obtained, the patient was brought into the endoscopy unit. IV conscious sedation was administered by Anesthesia under continuous monitoring. Initially the Olympus GIF-140 video endoscope was inserted into the mouth. Esophagus intubated without any difficulty. It was gradually advanced into the stomach and duodenum and carefully examined. The bulb and the second part of the duodenum appeared normal. The scope at this time was withdrawn to the stomach, adequately insufflated with air, and upon careful examination, mucosa of the antrum, and mild gastritis and biopsies were done from this area. The body, cardia and the fundus appeared normal. The scope was then withdrawn into the esophagus. The GE junction was located at 39 cm from the incisors. there were 2 superficial erosions identified consistent with LA grade B reflux esophagitis The rest of the esophagus appeared normal and the patient tolerated the procedure well. IMPRESSION: 1. Mild antral gastritis 2. 2 superficial erosions at the GE junction consistent with LA grade a reflux esophagitis. RECOMMENDATIONS: The findings of this examination were discussed with the patient as well as her family. She was advised to continue with omeprazole 20 mg daily and follow antireflux measures. She will be seen in office in 6 weeks.
[2016-08-29 11:41] VITALS: RESP 18
[2016-08-29 12:03] VITALS: PULSE 66
[2016-08-29 13:52] VITALS: BP 164/94
--- NOTE | 2016-09-03 12:42 | CDI ---
Dear Dr. Barnett, The Procedure Note documents the sedation provided was IV sedation per anesthesia in one spot and in the paragraph under Procedure IV conscious sedation is documented. On the Anesthesia Record, GA/Unconscious sedation is documented. This is conflicting documentation that needs clarification. Please clarify if the sedation provided Lina Kay was Conscious/Moderate sedation or GA/Unconscious sedation. PLEASE DOCUMENT THIS CLARIFICATION AN ADDENDUM TO THE PROCEDURE NOTE. If you have any questions regarding this query, you may contact Mahogany De Anda , manager fleet at Saturday thru Saturday from 8am to 6pm. Thank you for your time, Cyndi Emery, [facility] Outpatient Manager Sourcing Nimisha MTDD
--- NOTE | 2016-10-05 10:46 | CDI ---
Dear Dr. Barnett, The Procedure Note documents the sedation provided was IV sedation per anesthesia in one spot and in the paragraph under Procedure IV conscious sedation is documented. On the [place] Record, GA/Unconscious sedation is documented. This is conflicting documentation that needs clarification. Please clarify if the sedation provided Lina Kay was Conscious/Moderate sedation or GA/Unconscious sedation. PLEASE DOCUMENT THIS CLARIFICATION AN ADDENDUM TO THE PROCEDURE NOTE. If you have any questions regarding this query, you may contact Mahogany De Anda , security and compliance project manager at Saturday thru Saturday from 8am to 6pm. Thank you for your time, Cyndi Emery, [facility] Outpatient Pluck Trimmer Nimisha MTDD
--- NOTE | 2016-10-10 11:42 | OP ---
ADDENDUM: DATE OF SERVICE: 08/29/2016 SURGEON: YAMILEX SZYMANSKI DO FRACTIONATING STILL OPERATOR: PREOPERATIVE DIAGNOSIS: POSTOPERATIVE DIAGNOSIS: OPERATION: ANESTHESIA: ESTIMATED BLOOD LOSS: SPECIMENS REMOVED: COMPLICATIONS: OPERATIVE FINDINGS: DESCRIPTION OF PROCEDURE: General anesthesia was utilized instead of IV conscious sedation.
== END 2016-08-29 12:30 | disposition home or self-care (01) ==
LOC: ORWHC2ENDO 09:53
PROVIDERS: ATTEND Internal Medicine Gastroenterology
DX: K21.9 Gastro-esophageal reflux disease without esophagitis (principal); K29.50 Unspecified chronic gastritis without bleeding; Z86.73 Personal history of transient ischemic attack (TIA), and cerebral infarction without residual deficits; I10 Essential (primary) hypertension; E78.5 Hyperlipidemia, unspecified; Z79.82 Long term (current) use of aspirin; Z79.899 Other long term (current) drug therapy; Z88.2 Allergy status to sulfonamides
CPT/HCPCS: 88305; 88342; 43239; J2001; J2704

== ENCOUNTER → 2016-09-13 | Outpatient (CLI) | payer MEDICARE ==
[2016-09-13 15:48] LABS: Non-African American GFR(MDRD) >60 (>60 ml/min/1.73 sqM)
== END | disposition home or self-care (01) ==
LOC: LABWHC1 15:25
PROVIDERS: ATTEND Psychiatry & Neurology Neurology
DX: G45.9 Transient cerebral ischemic attack, unspecified (principal); I63.9 Cerebral infarction, unspecified; I65.21 Occlusion and stenosis of right carotid artery; G81.92 Hemiplegia, unspecified affecting left dominant side
CPT/HCPCS: 36415; 82565

== ENCOUNTER → 2016-09-14 | Outpatient (CLI) | payer MEDICARE ==
--- NOTE | 2016-09-14 23:35 | MR ---
MRI of the brain with and without contrast HISTORY: Headaches. TECHNIQUE: T1-weighted sagittal, T2, FLAIR, and diffusion axial, postcontrast T1 axial and coronal vi ews of the brain are submitted. CONTRAST: 20 mL MultiHance COMPARISON: 08/26/2016 CT brain FINDINGS: There is no evidence of acute ischemia. The ventricles, basal cisterns, and sulci overlying the co nvexities are consistent with the patient's age. There is no mass effect or enhancing mass. Craniocervical junction maintained. Sella turcica has a normal appearance. No evidence of cerebellopo ntine angle mass. Changes of mild chronic sinusitis. Intraorbital structures have a normal appearance. No midline shift or mass effect. WHITE MATTER: There are approximately 5 areas of abnormal signal within the white matter scattered bilaterally. Lar gest measures 5 mm. No lesions perpendicular to the ventricular system. No callosal lesions. No enhan cing lesions. IMPRESSION: 1. No acute intracranial process. 2. Minimal nonspecific white matter changes. Most likely etiology tiny areas of remote microvascular ischemia. Other etiologies not entirely excluded.
--- NOTE | 2016-09-14 23:36 | MR ---
EXAMINATION TYPE: MR angio COW wo con DATE OF EXAM: 09/14/2016 10:10 PM COMPARISON: NONE HISTORY: Transient Lt hemiparesis, TIA on 08-14-16 TECHNIQUE: Utilizing 3-D [id number] intracranial MRA of the [place] was performed. FINDINGS: The vertebrobasilar and carotid systems are patent. There is a 2 mm protuberance of the right caroti d suspicious for tiny aneurysm. Remaining vasculature demonstrates no diagnostic evidence of sizable aneurysm. The right posterior cerebral artery originates from the internal circulation. IMPRESSION: 1. 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 FINDINGS: The origins of the carotid arteries are patent bilaterally. Diminutive origins of the vertebral arter ies bilaterally. Left vertebral artery slightly dominant. There is approximately 45-50% stenosis involving the proximal right subclavian artery. The carotid bifurcations are patent bilaterally. There is no significant stenosis bilaterally. Mild a therosclerotic plaque is seen involving the bilateral carotid bifurcation. IMPRESSION: 1. No significant hemodynamic stenosis involving the carotid bifurcations bilaterally. Mild plaque no tamar involving the right carotid bifurcation 2. Approximately 45-50% stenosis involving the proximal right subclavian artery.
== END | disposition home or self-care (01) ==
LOC: RADMRIMAIN 20:57
PROVIDERS: ATTEND Psychiatry & Neurology Neurology
DX: G45.9 Transient cerebral ischemic attack, unspecified (principal)
CPT/HCPCS: 70544; 70549; 70553; A9577

== ENCOUNTER → 2016-10-12 | Outpatient (CLI) | payer MEDICARE ==
--- NOTE | 2016-10-16 07:25 | MM ---
Reason for exam: screening (asymptomatic). Last mammogram was performed 1 year ago. History: Patient is postmenopausal. Physical Findings: A clinical breast exam by your physician is recommended on an annual basis and results should be correlated with mammographic findings. MG 3D Screening Mammo W/Cad Bilateral CC and MLO view(s) were taken. Prior study comparison: October 12, 2015, bilateral MG 3d screening mammo w/cad. October 06, 2014, bilateral MG screening mammo w CAD. September 23, 2013, bilateral digital screening mammo w/CAD. The breast tissue is heterogeneously dense. This may lower the sensitivity of mammography. No significant changes when compared with prior studies. ASSESSMENT: Negative, BI-RAD 1 RECOMMENDATION: Routine screening mammogram of both breasts in 1 year.
== END | disposition home or self-care (01) ==
LOC: RADMAMWWP 13:26
PROVIDERS: ATTEND Family Medicine
DX: Z12.31 Encounter for screening mammogram for malignant neoplasm of breast (principal)
CPT/HCPCS: 77063; G0202

== ENCOUNTER → 2017-04-19 | Outpatient (CLI) | payer MEDICARE ==
--- NOTE | 2017-04-19 12:19 | XR ---
Right hand HISTORY: Lump on lateral wrist, right hand and wrist pain 3 views of the right hand No comparisons Arthropathy changes are present at the first carpometacarpal joint, intercarpal joints. Bone minerali zation is slightly reduced. Alignment is maintained. Osteoarthritic change also noted at the distal i nterphalangeal joints. No fracture or dislocation. Soft tissue prominence noted lateral to the distal metaphyseal right radius. IMPRESSION: Osteoarthritis. Correlate for possible ganglion cyst, wrist MRI without contrast, with ov erlying skin marker may be of benefit.
== END ==
LOC: RADXRYALE 10:03
PROVIDERS: ATTEND Physician Assistant Medical
DX: M19.041 Primary osteoarthritis, right hand (principal)

== ENCOUNTER → 2017-10-05 | Outpatient (CLI) | payer MEDICARE ==
--- NOTE | 2017-10-05 13:59 | MR ---
EXAMINATION TYPE: MR angio head wo con DATE OF EXAM: 10/05/2017 12:24 PM COMPARISON: 09/14/2016 HISTORY: F/U known aneurysm, compare to MRI 09-14-16 Three-dimensional [id number] intracranial MRA was performed with multiple intensity projection im ages submitted and source data reviewed at the workstation. The vertebrobasilar system as well as intracranial portions of the internal carotid arteries and thei r major tributaries are patent. Stable 2 mm aneurysm of distal right ICA. No new aneurysms identified . No evidence for vascular malformation. IMPRESSION: Stable distal right ICA aneurysm at 2 mm.
== END | disposition home or self-care (01) ==
LOC: RADMRIMAIN 11:38
PROVIDERS: ATTEND Psychiatry & Neurology Neurology
DX: I67.1 Cerebral aneurysm, nonruptured (principal); Z86.69 Personal history of other diseases of the nervous system and sense organs
CPT/HCPCS: 70544

== ENCOUNTER → 2017-11-08 | Outpatient (CLI) | payer MEDICARE ==
--- NOTE | 2017-11-11 09:54 | BD ---
EXAMINATION TYPE: Axial Bone Density DATE OF EXAM: 11/08/2017 COMPARISON: 09.09.2012 CLINICAL HISTORY: 67 YR OLD FEMALE....ICD-10 CODE: Z13.820 OSTEOPOROSIS SCREEN Height: 63 Weight: 167 FRAX RISK QUESTIONS: NONE TO NOTE RISK FACTORS HISTORY OF: Diet low in dairy products/other sources of calcium: NO Postmenopausal woman: YES AT AGE 57 MEDICATIONS: Additional Medications: BP MEDS, CALCIUM AND VIT D, REFLUX MEDS, STATINS FOR CHOLESTEROL Additional History: HYPERTENSION, CHOLESTEROL HX, EXAM MEASUREMENTS: Bone mineral densitometry was performed using the [employer] System. Bone mineral density as measured about the Lumbar spine is: ----- L1-L4(G/cm2): 1.292 T Score Values are as follows: ----- L1: 0.0 ----- L2: 1.2 ----- L3: 2.0 ----- L4: 0.3 ----- L1-L4: 0.9 Bone mineral density has: Increased 13.3% since study of: 09.09.2012 Bone mineral density about the R hip (g/cm2): 1.075 Bone mineral density about the L hip (g/cm2): 1.078 T Score values are as follows: -----R Neck: -0.5 -----L Neck: -0.2 -----R Total: 0.5 -----L Total: 0.6 Bone mineral density has: Decreased -1.6% since study of: 09.09.2012 FRAX%s: THERE IS A7.5% CHANCE OF A MAJOR OSTEOPOROTIC FX AND A 0.4% FOR A HIP......PROBABILITY OF FX IN 10 YRS TIME IMPRESSION: Normal (Values between +1 and -1 indicate normal bone mass). Consider repeating this study in 5 year s or sooner if there is some new clinical indication. NOTE: T-SCORE=SD OF THE YOUNG ADULT MEAN.
--- NOTE | 2017-11-12 07:08 | MM ---
Reason for exam: screening (asymptomatic). Last mammogram was performed 1 year and 1 month ago. History: Patient is postmenopausal. Physical Findings: A clinical breast exam by your physician is recommended on an annual basis and results should be correlated with mammographic findings. MG 3D Screening Mammo W/Cad Bilateral CC and MLO view(s) were taken. Prior study comparison: October 12, 2016, bilateral MG 3d screening mammo w/cad. October 12, 2015, bilateral MG 3d screening mammo w/cad. The breast tissue is heterogeneously dense. This may lower the sensitivity of mammography. Finding: There are typically benign dystrophic, round calcifications in both breasts. There is no discrete abnormality. ASSESSMENT: Benign, BI-RAD 2 RECOMMENDATION: Routine screening mammogram of both breasts in 1 year.
== END | disposition home or self-care (01) ==
LOC: RADMAMWWP 14:19
PROVIDERS: ATTEND Family Medicine
DX: Z12.31 Encounter for screening mammogram for malignant neoplasm of breast (principal); Z13.820 Encounter for screening for osteoporosis
CPT/HCPCS: 77063; 77067; 77080

== ENCOUNTER 2018-05-26 19:02 | Observation (INO) | payer MEDICARE ==
--- NOTE | 2018-05-26 19:28 | ED ---
General Adult HPI - General Chief complaint: Chest Pain Stated complaint: Chest pain Time Seen by Provider: 05/26/18 19:26 Source: patient, family, RN notes reviewed Mode of arrival: ambulatory Limitations: no limitations - History of Present Illness Initial comments: 67-year-old female with a past medical history of GERD, CVA, hypertension presents to the emergency department with a chief complaint of burning chest pain for the past 4 hours. Patient states the pain started in her chest and is now more in the epigastric area. Patient denies any radiating pain but does state her bilateral fingertips feel somewhat numb. Patient also admits to shortness of breath, denies any pleuritic symptoms. Patient states she has been evaluated by cardiology a year ago with a negative stress test. She states the last time she was here she was told she had an abnormal EKG. Patient denies any nausea or vomiting. Patient has no other complaints at this time including nausea or vomiting, headache, or visual changes. - Related Data Home Medications Medication Instructions Recorded Confirmed Calcium Carbonate/Vitamin D3 1 tab PO DAILY 08/14/16 05/26/18 [Calcium 500-Vit D3 600 Tablet] Multivitamins, Thera [Multivitamin 1 tab PO DAILY 08/14/16 05/26/18 (formulary)] [place]-3 Fatty Acids/Fish Oil [Fish 1 cap PO DAILY 08/14/16 05/26/18 Oil 1,000 mg Softgel] Omeprazole 40 mg PO DAILY 08/14/16 05/26/18 Potassium 99 mg PO DAILY 08/14/16 05/26/18 Metoprolol Tartrate [Lopressor] 12.5 mg PO BID 05/26/18 05/26/18 Soy Isofla/Blk Cohosh/Mag Bark 155 mg PO DAILY 05/26/18 05/26/18 [Estroven 155 mg Capsule] Vit C/E/Zn/Coppr/Lutein/Zeaxan 1 cap PO DAILY 05/26/18 05/26/18 [Preservision Areds 2 Softgel] amLODIPine [Norvasc] 10 mg PO DAILY 05/26/18 05/26/18 Previous Rx's Medication Instructions Recorded Aspirin [Adult Low Dose Aspirin EC] 81 mg PO DAILY #30 tablet. 08/15/16 Atorvastatin [Lipitor] 10 mg PO HS #30 tab 08/15/16 Allergies Allergy/AdvReac Type Severity Reaction Status Date / Time Sulfa (Sulfonamide Allergy Rash/Hives Verified 05/26/18 19:08 Antibiotics) Review of Systems ROS Statement: Those systems with pertinent positive or pertinent negative responses have been documented in the HPI. ROS Other: All systems not noted in ROS Statement are negative. Past Medical History Past Medical History: CVA/TIA, GERD/Reflux, Hypertension History of Any Multi-Drug Resistant Organisms: None Reported Past Surgical History: No Surgical Hx Reported Additional Past Surgical History / Comment(s): colonscopy Past Anesthesia/Blood Transfusion Reactions: No Reported Reaction Past Psychological History: No Psychological Hx Reported Smoking Status: Former smoker Past Alcohol Use History: None Reported Past Drug Use History: None Reported - Past Family History Father History Unknown: Yes Additional Family Medical History / Comment(s): pt adopted unkown family history General Exam Limitations: no limitations General appearance: alert, in no apparent distress Head exam: Present: atraumatic, normocephalic, normal inspection Eye exam: Present: normal appearance, PERRL, EOMI. Absent: scleral icterus, conjunctival injection, periorbital swelling ENT exam: Present: normal exam, mucous membranes moist Neck exam: Present: normal inspection, full ROM. Absent: tenderness, meningismus, lymphadenopathy Respiratory exam: Present: normal lung sounds bilaterally. Absent: respiratory distress, wheezes, rales, rhonchi, stridor Cardiovascular Exam: Present: regular rate, normal rhythm, normal heart sounds. Absent: systolic murmur, diastolic murmur, rubs, gallop, clicks GI/Abdominal exam: Present: soft, normal bowel sounds. Absent: distended, tenderness (No significant tenderness noted of the upper abdomen, negative Gordon sign.), guarding, rebound, rigid Extremities exam: Present: normal capillary refill (Radial pulse 2+, equal in upper extremities bilaterally) Back exam: Absent: tenderness, CVA tenderness (R), CVA tenderness (L) Neurological exam: Present: alert, oriented X3, CN II-XII intact Psychiatric exam: Present: normal affect, normal mood Course Vital Signs 05/26/18 05/26/18 05/26/18 19:06 19:20 19:25 Temperature 97.7 F Pulse Rate 95 85 93 Pulse Rate [ Left Radial] Respiratory 22 Rate Blood Pressure 163/95 Blood Pressure [Left Arm] O2 Sat by Pulse 99 98 98 Oximetry 05/26/18 05/26/18 05/26/18 19:30 19:35 19:40 Temperature Pulse Rate 86 85 78 Pulse Rate [ Left Radial] Respiratory Rate Blood Pressure Blood Pressure [Left Arm] O2 Sat by Pulse 98 97 98 Oximetry 05/26/18 05/26/18 05/26/18 19:45 19:50 20:00 Temperature Pulse Rate 74 85 71 Pulse Rate [ Left Radial] Respiratory Rate Blood Pressure 140/89 140/89 Blood Pressure [Left Arm] O2 Sat by Pulse 98 99 100 Oximetry 05/26/18 05/26/18 05/26/18 20:05 20:10 20:15 Temperature Pulse Rate 98 100 90 Pulse Rate [ Left Radial] Respiratory Rate Blood Pressure 141/88 130/83 Blood Pressure [Left Arm] O2 Sat by Pulse 99 99 99 Oximetry 05/26/18 05/26/18 05/26/18 20:20 20:25 20:30 Temperature Pulse Rate 89 77 77 Pulse Rate [ Left Radial] Respiratory Rate Blood Pressure 130/83 130/83 130/83 Blood Pressure [Left Arm] O2 Sat by Pulse 99 98 90 L Oximetry 05/26/18 05/26/18 05/26/18 20:35 20:40 20:45 Temperature Pulse Rate 78 Pulse Rate [ Left Radial] Respiratory Rate Blood Pressure 140/89 140/89 140/89 Blood Pressure [Left Arm] O2 Sat by Pulse Oximetry 05/26/18 05/26/18 05/26/18 20:55 21:00 21:05 Temperature Pulse Rate 73 74 86 Pulse Rate [ Left Radial] Respiratory Rate Blood Pressure Blood Pressure [Left Arm] O2 Sat by Pulse 100 100 100 Oximetry 05/26/18 05/26/18 05/26/18 21:10 21:15 21:20 Temperature Pulse Rate 77 77 79 Pulse Rate [ Left Radial] Respiratory Rate Blood Pressure 147/89 147/89 147/89 Blood Pressure [Left Arm] O2 Sat by Pulse 100 100 100 Oximetry 05/26/18 05/26/18 05/26/18 21:25 21:30 21:35 Temperature Pulse Rate 82 80 75 Pulse Rate [ Left Radial] Respiratory Rate Blood Pressure 147/89 147/89 151/90 Blood Pressure [Left Arm] O2 Sat by Pulse 100 100 99 Oximetry 05/26/18 05/26/1818 21:40 21:45 21:50 Temperature Pulse Rate 72 Pulse Rate [ Left Radial] Respiratory Rate Blood Pressure 151/90 151/90 151/90 Blood Pressure [Left Arm] O2 Sat by Pulse 98 98 Oximetry 05/26/18 05/26/18 05/26/18 21:55 22:00 22:05 Temperature Pulse Rate 85 65 78 Pulse Rate [ Left Radial] Respiratory Rate Blood Pressure 151/90 151/90 137/89 Blood Pressure [Left Arm] O2 Sat by Pulse 99 98 99 Oximetry 05/26/18 05/26/18 05/26/18 22:28 23:20 23:23 Temperature 97.5 F L 97.5 F L Pulse Rate Pulse Rate [ 66 66 66 Left Radial] Respiratory 18 18 18 Rate Blood Pressure Blood Pressure 135/71 135/71 [Left Arm] O2 Sat by Pulse 98 98 Oximetry Medical Decision Making - Medical Decision Making 67-year-old female presents to the emergency department with a past medical history of GERD, CVA, hypertension for a chief complaint of burning chest pain 4 hours. Patient starts the pains are in her chest it and now is in the epigastric area. She denies radiating pain initially but does admit that radiates to her bilateral fingertips. On reevaluation patient states it does sometimes radiate to her left shoulder. Chemistry mild shortness of breath when pain is severe but denies shortness of breath at rest. Denies any pleuritic symptoms. She was evaluated by cardiology a year ago. On exam patient does not have any significant abdominal tenderness. Patient has full strength in the left upper extremity, sensation intact. CBC and CMP were unremarkable. Troponin less than 0.012. Patient has a history of an unknown aneurysm but is unsure what. Patient does admit to thoracic and lower back pain for the past 2 days. Because of this CAT scan was ordered which showed a normal aorta. Severe degenerative changes at L2 to L3 through L5 to S1 is seen. No other significant abnormality. Patient was given nitro which did not help with her pain. She was given morphine which did seem to help. Patient was given aspirin in the emergency department. Given patient's age and generally short duration of symptoms she will be admitted for trending troponins and cardiology consult. - Lab Data Result diagrams: 05/26/18 19:40 12/24/18 19:40 Lab Results 05/26/18 05/26/18 05/26/18 Range/Units 19:30 19:40 19:40 WBC 8.4 (3.8-10.6) k/uL RBC 4.62 (3.80-5.40) m/uL Hgb 14.3 (11.4-16.0) gm/dL Hct 41.4 (34.0-46.0) % MCV 89.8 (80.0-100.0) fL MCH 30.9 (25.0-35.0) pg MCHC 34.4 (31.0-37.0) g/dL RDW 13.2 (11.5-15.5) % Plt Count 262 (150-450) k/uL Neutrophils % 74 % Lymphocytes % 16 % Monocytes % 6 % Eosinophils % 1 % Basophils % 0 % Neutrophils # 6.2 (1.3-7.7) k/uL Lymphocytes # 1.4 (1.0-4.8) k/uL Monocytes # 0.5 (0-1.0) k/uL Eosinophils # 0.1 (0-0.7) k/uL Basophils # 0.0 (0-0.2) k/uL PT (9.0-12.0) sec INR (<1.2) APTT (22.0-30.0) sec Sodium (137-145) mmol/L Potassium (3.5-5.1) mmol/L Chloride (98-107) mmol/L Carbon Dioxide (22-30) mmol/L Anion Gap mmol/L BUN (7-17) mg/dL Creatinine (0.52-1.04) mg/dL Est GFR (CKD-EPI)AfAm (>60 ml/min/1.73 sqM) Est GFR (CKD-EPI)NonAf (>60 ml/min/1.73 sqM) Glucose (74-99) mg/dL Calcium (8.4-10.2) mg/dL Magnesium (1.6-2.3) mg/dL Total Bilirubin (0.2-1.3) mg/dL AST (14-36) U/L ALT (9-52) U/L Alkaline Phosphatase (38-126) U/L Total Creatine Kinase 69 (30-135) U/L CK-MB (CK-2) 1.2 (0.0-2.4) ng/mL CK-MB (CK-2) Rel Index 1.7 Troponin I <0.012 (0.000-0.034) ng/mL Total Protein (6.3-8.2) g/dL Albumin (3.5-5.0) g/dL Urine Color Light Yellow Urine Appearance Clear (Clear) Urine pH 7.5 (5.0-8.0) Ur Specific [employer] 1.004 (1.001-1.035) Urine Protein Negative (Negative) Urine Glucose (UA) Negative (Negative) Urine Ketones Negative (Negative) Urine Blood Negative (Negative) Urine Nitrite Negative (Negative) Urine Bilirubin Negative (Negative) Urine Urobilinogen <2.0 (<2.0) mg/dL Ur Leukocyte Esterase Moderate H (Negative) Urine RBC 1 (0-5) /hpf Urine WBC 14 H (0-5) /hpf Ur Squamous Epith Cells <1 (0-4) /hpf Urine Mucus Rare H (None) /hpf 05/26/18 05/26/18 Range/Units 19:40 19:40 WBC (3.8-10.6) k/uL RBC (3.80-5.40) m/uL Hgb (11.4-16.0) gm/dL Hct (34.0-46.0) % MCV (80.0-100.0) fL MCH (25.0-35.0) pg MCHC (31.0-37.0) g/dL RDW (11.5-15.5) % Plt Count (150-450) k/uL Neutrophils % % Lymphocytes % % Monocytes % % Eosinophils % % Basophils % % Neutrophils # (1.3-7.7) k/uL Lymphocytes # (1.0-4.8) k/uL Monocytes # (0-1.0) k/uL Eosinophils # (0-0.7) k/uL Basophils # (0-0.2) k/uL PT 9.6 (9.0-12.0) sec INR 0.9 (<1.2) APTT 23.0 (22.0-30.0) sec Sodium 142 (137-145) mmol/L Potassium 3.7 (3.5-5.1) mmol/L Chloride 111 H (98-107) mmol/L Carbon Dioxide 21 L (22-30) mmol/L Anion Gap 10 mmol/L BUN 11 (7-17) mg/dL Creatinine 0.52 (0.52-1.04) mg/dL Est GFR (CKD-EPI)AfAm >90 (>60 ml/min/1.73 sqM) Est GFR (CKD-EPI)NonAf >90 (>60 ml/min/1.73 sqM) Glucose 130 H (74-99) mg/dL Calcium 10.3 H (8.4-10.2) mg/dL Magnesium 1.9 (1.6-2.3) mg/dL Total Bilirubin 0.4 (0.2-1.3) mg/dL AST 26 (14-36) U/L ALT 35 (9-52) U/L Alkaline Phosphatase 145 H (38-126) U/L Total Creatine Kinase (30-135) U/L CK-MB (CK-2) (0.0-2.4) ng/mL CK-MB (CK-2) Rel Index Troponin I (0.000-0.034) ng/mL Total Protein 7.8 (6.3-8.2) g/dL Albumin 4.8 (3.5-5.0) g/dL Urine Color Urine Appearance (Clear) Urine pH (5.0-8.0) Ur Specific [employer] (1.001-1.035) Urine Protein (Negative) Urine Glucose (UA) (Negative) Urine Ketones (Negative) Urine Blood (Negative) Urine Nitrite (Negative) Urine Bilirubin (Negative) Urine Urobilinogen (<2.0) mg/dL Ur Leukocyte Esterase (Negative) Urine RBC (0-5) /hpf Urine WBC (0-5) /hpf Ur Squamous Epith Cells (0-4) /hpf Urine Mucus (None) /hpf Disposition Clinical Impression: Chest pain Disposition: ADMITTED IP TO THIS HOSP Is patient prescribed a controlled substance at d/c from ED?: No Referrals: Reno Escoto DO [Primary Care Provider] - 1-2 days Time of Disposition: 22:17
[2018-05-26] MEDS ORDERED: SODIUM CHLORIDE 0.9% 500 ML 500 ML IV STA (19:40)
[2018-05-26] MEDS ORDERED: ASPIRIN 81 MG PO STA (19:40)
[2018-05-26] MEDS ORDERED: NITROGLYCERIN SL TABS 0.4 MG TAB SUBLINGUAL STA (19:40)
[2018-05-26] MEDS ORDERED: MAG HYDROX/AL HYDROX/SIMETH 30 ML, HYOSCYAMINE ELIXIR 10 ML, CIMETIDINE HCL 300 MG, LID... PO STA ×4 (19:43)
[2018-05-26 19:57] LABS: Basophils % (A) 0 %; Eosinophils # (A) 0.1 k/uL (0-0.7); Eosinophils % (A) 1 %; HCT 41.4 % (34.0-46.0); HGB 14.3 gm/dL (11.4-16.0); Lymphocytes # (A) 1.4 k/uL (1.0-4.8); Lymphocytes % (A) 16 %; MCH 30.9 pg (25.0-35.0); MCHC 34.4 g/dL (31.0-37.0); MCV 89.8 fL (80.0-100.0); Mean Platelet Volume 7.4; Monocytes # (A) 0.5 k/uL (0-1.0); Monocytes % (A) 6 %; Neutrophils # (A) 6.2 k/uL (1.3-7.7); Neutrophils % (A) 74 %; Platelet Count 262 k/uL (150-450); RBC 4.62 m/uL (3.80-5.40); RDW 13.2 % (11.5-15.5); WBC 8.4 k/uL (3.8-10.6)
--- NOTE | 2018-05-26 20:04 | XR ---
EXAMINATION TYPE: XR chest 2V DATE OF EXAM: 05/26/2018 COMPARISON: 08/25/2016 HISTORY: Shortness of breath TECHNIQUE: Frontal and lateral views of the chest are obtained. FINDINGS: Scattered senescent parenchymal changes noted. Hyperinflation compatible with COPD. No evidence for infiltrate. No evidence for atelectasis. Heart size is stable. Mediastinal structures are stable and grossly unremarkable. No evidence for hilar prominence. Degenerative changes dorsal spine. IMPRESSION: 1. No evidence for acute pulmonary disease.
[2018-05-26 20:06] LABS: ALT 35 U/L (9-52); AST 26 U/L (14-36); Albumin 4.8 g/dL (3.5-5.0); Alkaline Phosphatase 145 U/L (38-126); Anion Gap 10 mmol/L; Blood Urea Nitrogen 11 mg/dL (7-17); Calcium 10.3 mg/dL (8.4-10.2); Carbon Dioxide 21 mmol/L (22-30); Chloride 111 mmol/L (98-107); Glucose 130 mg/dL (74-99); Magnesium 1.9 mg/dL (1.6-2.3); Potassium 3.7 mmol/L (3.5-5.1); Sodium 142 mmol/L (137-145); Total Bilirubin 0.4 mg/dL (0.2-1.3); Total Protein 7.8 g/dL (6.3-8.2)
[2018-05-26 20:09] LABS: Creatine Kinase 69 U/L (30-135)
[2018-05-26 20:18] LABS: INR 0.9 (<1.2); Prothrombin Time 9.6 sec (9.0-12.0)
[2018-05-26 20:22] LABS: Creatine Kinase MB 1.2 ng/mL (0.0-2.4); Troponin I <0.012 ng/mL (0.000-0.034)
[2018-05-26] MEDS ORDERED: MORPHINE SULFATE 4 MG/ML SYRINGE IVP STA (21:04)
--- NOTE | 2018-05-26 21:07 | CT ---
EXAMINATION TYPE: CT ChestAbdPelvis w con DATE OF EXAM: 05/26/2018 COMPARISON: 08/26/2016 HISTORY: Chest and back pain. CT DLP: 942.7 mGycm CONTRAST: CT scan of the chest, abdomen and pelvis is performed without Oral Contrast and with IV Contrast, pat ient injected with 100ml mL of Isovue 300. CT Chest: LUNGS: The lungs are clear and free of infiltrate or atelectasis. No pulmonary nodule or mass is det ected. No pleural effusion or CT evidence of interstitial lung disease. MEDIASTINUM: Thoracic aorta is of normal caliber. The heart is not enlarged. No evidence for media stinal mass or adenopathy. HILAR STRUCTURES: No evidence for mass. No hilar adenopathy is appreciated. OTHER: No significant abnormality. CONTRAST CT ABDOMEN AND PELVIS FINDINGS: LIVER/GB: No calcified gallstones. No space occupying hepatic lesion. Biliary tree is of normal ca liber. PANCREAS: No inflammation. No distinct mass. SPLEEN: No splenic enlargement. No lesion seen. ADRENALS: No nodule. No thickening. KIDNEYS/BLADDER: No hydronephrosis. No nephrolithiasis. No disctinct renal mass. BOWEL: Normal appendix. Normal bowel caliber. No inflammation. GENITAL ORGANS: No gross abnormality. LYMPH NODES: No greater than 1cm abdominal or pelvic lymph nodes are appreciated. AORTA: No significant abnormality. OSSEOUS STRUCTURES: Severe degenerative change at L2-3 through L5-S1 with vacuum disks noted. OTHER: No significant additional abnormality is seen. IMPRESSION: 1. No significant abnormality to account for the patient's symptoms.
[2018-05-26] MEDS ORDERED: NITROGLYCERIN SL TABS 0.4 MG TAB SUBLINGUAL PRN (22:09)
[2018-05-26 22:17] LABS: Appearance,Urine Clear (Clear); Bilirubin,Urine Negative (Negative); Blood,Urine Negative (Negative); Color,Urine Light Yellow; Glucose,Urine (UA) Negative (Negative); Ketones,Urine Negative (Negative); Leukocyte Esterase,Urine Moderate (Negative); Mucus,Urine Rare /hpf; Nitrite,Urine Negative (Negative); PH, Urine 7.5 (5.0-8.0); Protein,Urine Negative (Negative); RBC,Urine 1 /hpf (0-5); Specific Gravity,Urine 1.004 (1.001-1.035); Squamous Epithelial Cell,Urine <1 /hpf (0-4); Urobilinogen,Urine <2.0 mg/dL (<2.0); WBC,Urine 14 /hpf (0-5)
[2018-05-26 22:57] VITALS: BMI 28.1
[2018-05-27 02:04] LABS: Creatine Kinase 57 U/L (30-135)
[2018-05-27 02:17] LABS: Creatine Kinase MB 1.1 ng/mL (0.0-2.4); Troponin I <0.012 ng/mL (0.000-0.034)
[2018-05-27] MEDS: MORPHINE SULFATE 4 MG/ML SYRINGE IVP SCH ×3 (05:14→06:46)
[2018-05-27 06:56] LABS: Basophils # (A) 0.1 k/uL (0-0.2); Basophils % (A) 1 %; Eosinophils # (A) 0.1 k/uL (0-0.7); Eosinophils % (A) 1 %; HCT 39.7 % (34.0-46.0); HGB 13.4 gm/dL (11.4-16.0); Lymphocytes # (A) 1.8 k/uL (1.0-4.8); Lymphocytes % (A) 25 %; MCH 30.9 pg (25.0-35.0); MCHC 33.9 g/dL (31.0-37.0); MCV 91.1 fL (80.0-100.0); Mean Platelet Volume 7.4; Monocytes # (A) 0.5 k/uL (0-1.0); Monocytes % (A) 7 %; Neutrophils # (A) 4.4 k/uL (1.3-7.7); Neutrophils % (A) 62 %; Platelet Count 247 k/uL (150-450); RBC 4.35 m/uL (3.80-5.40); RDW 13.4 % (11.5-15.5); WBC 7.1 k/uL (3.8-10.6)
[2018-05-27 07:06] LABS: Anion Gap 9 mmol/L; Blood Urea Nitrogen 7 mg/dL (7-17); Calcium 9.6 mg/dL (8.4-10.2); Carbon Dioxide 23 mmol/L (22-30); Chloride 112 mmol/L (98-107); Cholesterol 168 mg/dL (<200); Glucose 125 mg/dL (74-99); HDL Cholesterol 72 mg/dL (40-60); LDL Cholesterol,Calculated 78 mg/dL (0-99); Potassium 3.8 mmol/L (3.5-5.1); Sodium 144 mmol/L (137-145); Triglycerides 90 mg/dL (<150)
[2018-05-27 07:14] LABS: Creatine Kinase 64 U/L (30-135)
[2018-05-27 07:25] LABS: Creatine Kinase MB 1.3 ng/mL (0.0-2.4); Troponin I <0.012 ng/mL (0.000-0.034)
[2018-05-27 07:34] VITALS: BP 155/85; PULSE 61; RESP 18; TEMP 98
[2018-05-27] MEDS ORDERED: MAG HYDROX/AL HYDROX/SIMETH 30 ML CUP PO PRN (08:37)
[2018-05-27] MEDS ORDERED: PANTOPRAZOLE 40 MG TABLET PO SCH (08:45)
[2018-05-27] MEDS ORDERED: CALCIUM CARB-VIT D 500MG-200UN 1 EACH TAB PO SCH (09:00)
[2018-05-27] MEDS ORDERED: NON-FORMULARY DRUG (Soy Isofla/Blk Cohosh/Mag Bark [Estroven 155 Mg Capsule] 155 MG) PO SCH (09:00)
[2018-05-27] MEDS ORDERED: NON-FORMULARY DRUG (Omega-3 Fatty Acids/Fish Oil [Fish Oil 1,000 Mg Softgel] 1 CAP) PO SCH (09:00)
[2018-05-27] MEDS ORDERED: METOPROLOL TARTRATE 12.5 MG TAB PO SCH (09:00)
[2018-05-27] MEDS ORDERED: ASPIRIN 81 MG PO SCH ×2 (09:00→09:30)
[2018-05-27] MEDS ORDERED: amLODIPine 10 MG TAB PO SCH (09:00)
[2018-05-27] MEDS ORDERED: ASPIRIN 325 MG TAB PO SCH (09:00)
[2018-05-27] MEDS ORDERED: NON-FORMULARY DRUG (Potassium [Potassium] 99 MG) PO SCH (09:00)
[2018-05-27] MEDS ORDERED: MULTIVITAMINS, THERA 1 EACH TAB PO SCH (09:00)
--- NOTE | 2018-05-27 09:34 | P.CRDCN ---
History of Present Illness Consult date: 05/27/18 History of present illness: This is a 67-year-old female with history of hypertension and hypercholesterolemia and also previous history of smoking who comes to the emergency room with complaints of fever, chest pain. Patient came to the emergency room yesterday. Apparently patient had chest pain the day before that was relieved with ibuprofen. Yesterday she was working in her kitchen and cyst out having pain under the left breast area radiating around axillary area on the left side. She also had some pain on the right side below the breast area. She thinks there is some sore spot under the breast. Patient took ibuprofen without much relief. Because of continued pain patient came to the emergency room. Patient was given sublingual nitroglycerin without much relief. She was given some GI cocktail that helped her nausea but the pain continued. Finally patient was given morphine with relief of pain. Her EKGs did not reveal any acute changes. Her cardiac enzymes 3 are negative. Her chest pains. Clinically appear to be atypical, probably musculoskeletal. However given her risk factor profile of hypertension, hypercholesterolemia and previous smoking, a stress test and may be considered to rule out ischemic heart disease. Patient is admitted here in August 2016 for similar symptoms. A stress echocardiogram at that time was negative for ischemia. He patient remains stable, patient could have the stress test and echocardiogram as an outpatient. Computed tomography scan of the chest, abdomen and pelvis did not show any significant abnormality Review of Systems As per the chart Past Medical History Past Medical History: CVA/TIA, GERD/Reflux, Hypertension Additional Past Medical History / Comment(s): Hand foot and mouth recently History of Any Multi-Drug Resistant Organisms: None Reported Past Surgical History: No Surgical Hx Reported Additional Past Surgical History / Comment(s): colonscopy Past Anesthesia/Blood Transfusion Reactions: No Reported Reaction Past Psychological History: No Psychological Hx Reported Smoking Status: Former smoker Past Alcohol Use History: None Reported Past Drug Use History: None Reported - Past Family History Father History Unknown: Yes Additional Family Medical History / Comment(s): pt adopted unkown family history Mother Family Medical History: Unable to Obtain Medications and Allergies Home Medications Medication Instructions Recorded Confirmed Type Calcium Carbonate/Vitamin D3 1 tab PO DAILY 08/14/16 05/26/18 History [Calcium 500-Vit D3 600 Tablet] Multivitamins, Thera [Multivitamin 1 tab PO DAILY 08/14/16 05/26/18 History (formulary)] [place]-3 Fatty Acids/Fish Oil [Fish 1 cap PO DAILY 08/14/16 05/26/18 History Oil 1,000 mg Softgel] Omeprazole 40 mg PO DAILY 08/14/16 05/26/18 History Potassium 99 mg PO DAILY 08/14/16 05/26/18 History Aspirin [Adult Low Dose Aspirin EC] 81 mg PO DAILY #30 tablet.dr 08/15/16 Rx Atorvastatin [Lipitor] 10 mg PO HS #30 tab 08/15/16 05/26/18 Rx Metoprolol Tartrate [Lopressor] 12.5 mg PO BID 05/26/18 05/26/18 History Soy Isofla/Blk Cohosh/Mag Bark 155 mg PO DAILY 05/26/18 05/26/18 History [Estroven 155 mg Capsule] Vit C/E/Zn/Coppr/Lutein/Zeaxan 1 cap PO DAILY 05/26/18 05/26/18 History [Preservision Areds 2 Softgel] amLODIPine [Norvasc] 10 mg PO DAILY 05/26/18 05/26/18 History Allergies Allergy/AdvReac Type Severity Reaction Status Date / Time Sulfa (Sulfonamide Allergy Rash/Hives Verified 05/26/18 19:08 Antibiotics) Physical Exam Vitals: Vital Signs Temp Pulse Pulse Resp BP BP Pulse Ox 05/27/18 07:38 61 18 05/27/18 07:34 155/85 05/27/18 07:32 98.0 F 61 18 182/87 97 05/27/18 04:00 97.6 F 73 17 127/82 98 05/26/18 23:23 97.5 F L 66 18 135/71 98 05/26/18 23:20 66 18 05/26/18 22:28 97.5 F L 66 18 135/71 98 05/26/18 22:05 78 137/89 99 05/26/18 22:00 65 151/90 98 05/26/18 21:55 85 151/90 99 05/26/18 21:50 72 151/90 98 05/26/18 21:45 151/90 98 05/26/18 21:40 151/90 05/26/18 21:35 75 151/90 99 05/26/18 21:30 80 147/89 100 05/26/18 21:25 82 147/89 100 05/26/18 21:20 79 147/89 100 05/26/18 21:15 77 147/89 100 05/26/18 21:10 77 147/89 100 05/26/18 21:05 86 100 05/26/18 21:00 74 100 05/26/18 20:55 73 100 05/26/18 20:45 140/89 05/26/18 20:40 140/89 05/26/18 20:35 78 140/89 05/26/18 20:30 77 130/83 90 L 05/26/18 20:25 77 130/83 98 05/26/18 20:20 89 130/83 99 05/26/18 20:15 90 130/83 99 05/26/18 20:10 100 141/88 99 05/26/18 20:05 98 99 05/26/18 20:00 71 100 05/26/18 19:50 85 140/89 99 05/26/18 19:45 74 140/89 98 05/26/18 19:40 78 98 05/26/18 19:35 85 97 05/26/18 19:30 86 98 05/26/18 19:25 93 98 05/26/18 19:20 85 98 05/26/18 19:06 97.7 F 95 22 163/95 99 Intake and Output 05/26/18 05/27/18 05/27/18 22:59 06:59 14:59 Intake Total 400 240 Balance 400 240 Intake: Oral 400 240 Other: Voiding Method Toilet # Voids 1 1 Weight 74.389 kg 75.2 kg GENERAL EXAM: Patient is alert and oriented and doesn't appear to be in any acute distress HEENT: Normocephalic. Normal reaction of pupils, equal size, normal range of extraocular motion. No erythema or exudates in the throat. NECK: No masses, no nuchal rigidity. CHEST: No chest wall deformity. LUNGS: Equal air entry with no crackles or wheeze. HEART: S1 and S2 normal with no audible mumurs or gallops. Regular rhythm, femorals equal on both sides.. ABDOMEN: No hepatosplenomegaly, normal bowel sounds, no guarding or rigidity. SKIN: No rashes CENTRAL NERVOUS SYSTEM: No focal deficits. EXTREMITIES: No cyanosis, clubbing or edema. Results 05/27/18 06:10 05/27/18 06:10 Cardiac Enzymes 05/26/18 05/26/18 05/27/18 Range/Units 19:40 19:40 01:34 AST 26 (14-36) U/L CK-MB (CK-2) 1.2 1.1 (0.0-2.4) ng/mL Troponin I <0.012 <0.012 (0.000-0.034) ng/mL 05/27/18 Range/Units 06:10 AST (14-36) U/L CK-MB (CK-2) 1.3 (0.0-2.4) ng/mL Troponin I <0.012 (0.000-0.034) ng/mL Coagulation 05/26/18 Range/Units 19:40 PT 9.6 (9.0-12.0) sec APTT 23.0 (22.0-30.0) sec Lipids 05/27/18 Range/Units 06:10 Triglycerides 90 (<150) mg/dL Cholesterol 168 (<200) mg/dL HDL Cholesterol 72 H (40-60) mg/dL CBC 05/26/18 05/27/18 Range/Units 19:40 06:10 WBC 8.4 7.1 (3.8-10.6) k/uL RBC 4.62 4.35 (3.80-5.40) m/uL Hgb 14.3 13.4 (11.4-16.0) gm/dL Hct 41.4 39.7 (34.0-46.0) % Plt Count 262 247 (150-450) k/uL Comprehensive Metabolic Panel 05/26/18 05/27/18 Range/Units 19:40 06:10 Sodium 142 144 (137-145) mmol/L Potassium 3.7 3.8 (3.5-5.1) mmol/L Chloride 111 H 112 H (98-107) mmol/L Carbon Dioxide 21 L 23 (22-30) mmol/L BUN 11 7 (7-17) mg/dL Creatinine 0.52 0.49 L (0.52-1.04) mg/dL Glucose 130 H 125 H (74-99) mg/dL Calcium 10.3 H 9.6 (8.4-10.2) mg/dL AST 26 (14-36) U/L ALT 35 (9-52) U/L Alkaline Phosphatase 145 H (38-126) U/L Total Protein 7.8 (6.3-8.2) g/dL Albumin 4.8 (3.5-5.0) g/dL Current Medications Generic Name Dose Route Start Last Admin Trade Name Freq PRN Reason Stop Dose Admin Al Hydroxide/Mg Hydroxide 30 ml 05/27/18 08:37 05/27/18 09:19 Maalox PO 30 ml Q4HR PRN Administration GI Upset Amlodipine Besylate 10 mg 05/27/18 09:00 05/27/18 09:18 Norvasc PO 10 mg DAILY SIMON Administration Aspirin 81 mg 05/27/18 09:30 Aspirin PO DAILY [facility] Atorvastatin Calcium 10 mg 05/27/18 21:00 Lipitor PO HS [facility] Calcium Carbonate 1 each 05/27/18 09:00 Oscal 500+D PO DAILY [facility] Metoprolol Tartrate 12.5 mg 05/27/18 09:00 05/27/18 09:18 Lopressor PO 12.5 mg BID [facility] Administration Morphine Sulfate 4 mg 05/26/18 22:15 05/27/18 06:46 Morphine Sulfate (Inj) IVP 4 mg Q6H [facility] Administration Multivitamins 1 each 05/27/18 09:00 Theragran PO DAILY [facility] Multivitamins/Minerals 1 each 05/27/18 12:00 Ivite PO DAILY@1200 [facility] Nitroglycerin 0.4 mg 05/26/18 22:09 Nitrostat SUBLINGUAL Q5M PRN Chest Pain Pantoprazole Sodium 40 mg 05/27/18 08:45 05/27/18 09:18 Protonix PO 40 mg [id number] SIMON Administration Intake and Output 05/26/18 05/27/18 05/27/18 22:59 06:59 14:59 Intake Total 400 240 Balance 400 240 Intake: Oral 400 240 Other: Voiding Method Toilet # Voids 1 1 Weight 74.389 kg 75.2 kg 05/27/18 06:10 05/27/18 06:10 EKG Interpretations (text) Sinus rhythm without acute changes Assessment and Plan (1) Chest pain Current Visit: Yes Status: Acute Code(s): R07.9 - CHEST PAIN, UNSPECIFIED SNOMED Code(s): 90612326 (2) Hypertension Current Visit: No Status: Acute Code(s): I10 - ESSENTIAL (PRIMARY) HYPERTENSION SNOMED Code(s): 96367938 (3) Hypercholesterolemia Current Visit: Yes Status: Acute Code(s): E78.00 - PURE HYPERCHOLESTEROLEMIA , UNSPECIFIED SNOMED Code(s): 57343659 Plan: Patient chest pain. Appeared to be atypical and probably muscular skeletal. EKGs and cardiac enzymes are negative. Patient may be considered for stress test and echocardiogram, Because of her risk factor profile. This test could be done as an outpatient.
--- NOTE | 2018-05-27 10:49 | P.DS ---
Providers Date of admission: 05/26/18 22:17 Attending physician: Duane Ramirez Consults: 05/26/18 22:13 Consult Physician Urgent Consulting Provider: Colin Erwin Consult Reason/Comments: CP, trend trops Do you want consulting provider notified?: Yes [facility] Course: Please refer to HPI for further details Plan - Discharge Summary New Discharge Prescriptions: New traMADol HCL [Ultram] 50 mg PO Q4HR PRN 3 Days #18 tab PRN Reason: Pain No Action Omeprazole 40 mg PO DAILY Multivitamins, Thera [Multivitamin (formulary)] 1 tab PO DAILY Potassium 99 mg PO DAILY [place]-3 Fatty Acids/Fish Oil [Fish Oil 1,000 mg Softgel] 1 cap PO DAILY Calcium Carbonate/Vitamin D3 [Calcium 500-Vit D3 600 Tablet] 1 tab PO DAILY Aspirin [Adult Low Dose Aspirin EC] 81 mg PO DAILY #30 tablet. Atorvastatin [Lipitor] 10 mg PO HS #30 tab amLODIPine [Norvasc] 10 mg PO DAILY Vit C/E/Zn/Coppr/Lutein/Zeaxan [Preservision Areds 2 Softgel] 1 cap PO DAILY Metoprolol Tartrate [Lopressor] 12.5 mg PO BID Soy Isofla/Blk Cohosh/Mag Bark [Estroven 155 mg Capsule] 155 mg PO DAILY Discharge Medication List Calcium Carbonate/Vitamin D3 [Calcium 500-Vit D3 600 Tablet] 1 tab PO DAILY [History] Multivitamins, Thera [Multivitamin (formulary)] 1 tab PO DAILY 08/14/16 [History ] [place]-3 Fatty Acids/Fish Oil [Fish Oil 1,000 mg Softgel] 1 cap PO DAILY [History] Omeprazole 40 mg PO DAILY 08/14/16 [History] Potassium 99 mg PO DAILY 08/14/16 [History] Aspirin [Adult Low Dose Aspirin EC] 81 mg PO DAILY #30 tablet. 08/15/16 [Rx] Atorvastatin [Lipitor] 10 mg PO HS #30 tab 08/15/16 [Rx] Metoprolol Tartrate [Lopressor] 12.5 mg PO BID 05/26/18 [History] Soy Isofla/Blk Cohosh/Mag Bark [Estroven 155 mg Capsule] 155 mg PO DAILY [History] Vit C/E/Zn/Coppr/Lutein/Zeaxan [Preservision Areds 2 Softgel] 1 cap PO DAILY [History] amLODIPine [Norvasc] 10 mg PO DAILY 05/26/18 [History] traMADol HCL [Ultram] 50 mg PO Q4HR PRN 3 Days #18 tab 05/27/18 [Rx] Follow up Appointment(s)/Referral(s): Marlena Barnett MD [STAFF PHYSICIAN] - 1 Week Reno Escoto DO [Primary Care Provider] - 3 Days Discharge Disposition: HOME SELF-CARE
--- NOTE | 2018-05-27 10:49 | P.HPIM ---
History of Present Illness 67-year-old pleasant female came in with complains of chest pain and epigastric burning sensation along with retrosternal burning sensation patient does take ibuprofen and potassium at home. Patient does take Prilosec 40 mg daily. Patient has some chronic back issues patient is also complaining of circumferential lower chest pain moderate in severity nonradiating patient has pain in the right lower rib cage area as well. Chest x-ray did not show any rib fractures. Currently evaluated the patient because the chest pain and troponins are negative EKG did not show any significant abnormality patient had similar symptoms in the past about any ago at that time patient underwent stress test which was negative. Patient underwent computed tomography scan of the chest abdomen and pelvis which did not show any significant abnormality cardiology is recommending an outpatient stress test and patient will be discharged today because of uncontrolled esophageal reflux disease symptoms recommended not to use ibuprofen patient can take Tylenol also give a prescription of tramadol for pain and anti-inflammatory effect. If patient can use to have the symptoms patient will need an upper GI endoscopy which she did get in the past which was essentially within normal limits patient denied any nausea vomiting. Patient denied any fever chills cough runny nose. Ruled out acute current syndromes. Review of Systems REVIEW OF SYSTEMS: CONSTITUTIONAL: No fever, no malaise, no fatigue. HEENT: No recent visual problems or hearing problems. Denied any sore throat. CARDIOVASCULAR: No orthopnea, PND, no palpitations, no syncope. PULMONARY: No shortness of breath, no cough, no hemoptysis. GASTROINTESTINAL: No diarrhea, no nausea, no vomiting, NEUROLOGICAL: No headaches, no weakness, no numbness. HEMATOLOGICAL: Denies any bleeding or petechiae. GENITOURINARY: Denies any burning micturition, frequency, or urgency. MUSCULOSKELETAL/RHEUMATOLOGICAL: Denies any joint pain, swelling, or any muscle pain. ENDOCRINE: Denies any polyuria or polydipsia. The rest of the 14-point review of systems is negative. Past Medical History Past Medical History: CVA/TIA, GERD/Reflux, Hypertension Additional Past Medical History / Comment(s): Hand foot and mouth recently History of Any Multi-Drug Resistant Organisms: None Reported Past Surgical History: No Surgical Hx Reported Additional Past Surgical History / Comment(s): colonscopy Past Anesthesia/Blood Transfusion Reactions: No Reported Reaction Past Psychological History: No Psychological Hx Reported Smoking Status: Former smoker Past Alcohol Use History: None Reported Past Drug Use History: None Reported - Past Family History Father History Unknown: Yes Additional Family Medical History / Comment(s): pt adopted unkown family history Mother Family Medical History: Unable to Obtain Medications and Allergies Home Medications Medication Instructions Recorded Confirmed Type Calcium Carbonate/Vitamin D3 1 tab PO DAILY 08/14/16 05/26/18 History [Calcium 500-Vit D3 600 Tablet] Multivitamins, Thera [Multivitamin 1 tab PO DAILY 08/14/16 05/26/18 History (formulary)] [place]-3 Fatty Acids/Fish Oil [Fish 1 cap PO DAILY 08/14/16 05/26/18 History Oil 1,000 mg Softgel] Omeprazole 40 mg PO DAILY 08/14/16 05/26/18 History Potassium 99 mg PO DAILY 08/14/16 05/26/18 History Aspirin [Adult Low Dose Aspirin EC] 81 mg PO DAILY #30 tablet. 08/15/16 Rx Atorvastatin [Lipitor] 10 mg PO HS #30 tab 08/15/16 05/26/18 Rx Metoprolol Tartrate [Lopressor] 12.5 mg PO BID 05/26/18 05/26/18 History Soy Isofla/Blk Cohosh/Mag Bark 155 mg PO DAILY 05/26/18 05/26/18 History [Estroven 155 mg Capsule] Vit C/E/Zn/Coppr/Lutein/Zeaxan 1 cap PO DAILY 05/26/18 05/26/18 History [Preservision Areds 2 Softgel] amLODIPine [Norvasc] 10 mg PO DAILY 05/26/18 05/26/18 History traMADol HCL [Ultram] 50 mg PO Q4HR PRN 3 Days #18 tab 05/27/18 Rx Allergies Allergy/AdvReac Type Severity Reaction Status Date / Time Sulfa (Sulfonamide Allergy Rash/Hives Verified 05/26/18 19:08 Antibiotics) Physical Exam Vitals: Vital Signs Temp Pulse Pulse Resp BP BP Pulse Ox 05/27/18 07:38 61 18 05/27/18 07:34 155/85 05/27/18 07:32 98.0 F 61 18 182/87 97 05/27/18 04:00 97.6 F 73 17 127/82 98 05/26/18 23:23 97.5 F L 66 18 135/71 98 18 23:20 66 18 05/26/18 22:28 97.5 F L 66 18 135/71 98 05/26/18 22:05 78 137/89 99 05/26/18 22:00 65 151/90 98 05/26/18 21:55 85 151/90 99 05/26/18 21:50 72 151/90 98 05/26/18 21:45 151/90 98 05/26/18 21:40 151/90 05/26/18 21:35 75 151/90 99 05/26/18 21:30 80 147/89 100 05/26/18 21:25 82 147/89 100 05/26/18 21:20 79 147/89 100 05/26/18 21:15 77 147/89 100 05/26/18 21:10 77 147/89 100 05/26/18 21:05 86 100 05/26/18 21:00 74 100 05/26/18 20:55 73 100 05/26/18 20:45 140/89 05/26/18 20:40 140/89 05/26/18 20:35 78 140/89 05/26/18 20:30 77 130/83 90 L 05/26/18 20:25 77 130/83 98 05/26/18 20:20 89 130/83 99 05/26/18 20:15 90 130/83 99 05/26/18 20:10 100 141/88 99 05/26/18 20:05 98 99 05/26/18 20:00 71 100 05/26/18 19:50 85 140/89 99 05/26/18 19:45 74 140/89 98 05/26/18 19:40 78 98 05/26/18 19:35 85 97 05/26/18 19:30 86 98 05/26/18 19:25 93 98 05/26/18 19:20 85 98 05/26/18 19:06 97.7 F 95 22 163/95 99 Intake and Output 05/26/18 05/27/18 05/27/18 22:59 06:59 14:59 Intake Total 400 240 Balance 400 240 Intake: Oral 400 240 Other: Voiding Method Toilet # Voids 1 1 Weight 74.389 kg 75.2 kg PHYSICAL EXAMINATION: GENERAL: The patient is alert and oriented x3, not in any acute distress. Well developed, well nourished. HEENT: Pupils are round and equally reacting to light. EOMI. No scleral icterus. No conjunctival pallor. Normocephalic, atraumatic. No pharyngeal erythema. No thyromegaly. CARDIOVASCULAR: S1 and S2 present. No murmurs, rubs, or gallops. PULMONARY: Chest is clear to auscultation, no wheezing or crackles. ABDOMEN: Soft, nontender, nondistended, normoactive bowel sounds. No palpable organomegaly. MUSCULOSKELETAL: No joint swelling or deformity. EXTREMITIES: No cyanosis, clubbing, or pedal edema. NEUROLOGICAL: Gross neurological examination did not reveal any focal deficits. SKIN: No rashes. Results CBC & Chem 7: 05/27/18 06:10 05/27/18 06:10 Labs: Abnormal Lab Results - Last 24 Hours (Table) 05/26/18 05/26/18 05/27/18 Range/Units 19:30 19:40 06:10 Chloride 111 H 112 H (98-107) mmol/L Carbon Dioxide 21 L (22-30) mmol/L Creatinine 0.49 L (0.52-1.04) mg/dL Glucose 130 H 125 H (74-99) mg/dL Calcium 10.3 H (8.4-10.2) mg/dL Alkaline Phosphatase 145 H (38-126) U/L HDL Cholesterol 72 H (40-60) mg/dL Ur Leukocyte Esterase Moderate H (Negative) Urine WBC 14 H (0-5) /hpf Urine Mucus Rare H (None) /hpf Thrombosis Risk Factor Assmnt - Choose All That Apply Each Risk Factor Represents 2 Points: Age 61-74 years Thrombosis Risk Factor Assessment Total Risk Factor Score: 2 Thrombosis Risk Factor Assessment Level: Low Risk Assessment and Plan Plan: -Chest pain and epigastric burning sensation: Patient's pain is multifactorial1 possible gastric esophageal reflux disease gastritis for which patient will continue Prilosec and the probably will need an upper GI endoscopy patient was asked to avoid ibuprofen. Patient can take Tylenol and tramadol. She also appears to have musculoskeletal pain and back pain. Patient will benefit from physical to be as outpatient. Rule out acute current syndromes was a valid by cardiology outpatient stress test. -History esophageal reflux disease -Hypertension -Hyperlipidemia Patient will resume and continue rest of her home medications. Patient will be discharged today
[2018-05-27] MEDS ORDERED: VIT A,C & E-LUTEIN-MINERALS 1 EACH TAB PO SCH (12:00)
[2018-05-27] MEDS ORDERED: ATORVASTATIN 10 MG TAB PO SCH (21:00)
== END 2018-05-27 12:35 | disposition home or self-care (01) ==
LOC: EC 19:02 → 3SCARD 22:17
PROVIDERS: ADMIT Internal Medicine; ATTEND Internal Medicine
DX: R07.89 Other chest pain (principal); K21.9 Gastro-esophageal reflux disease without esophagitis; M54.6 Pain in thoracic spine; E78.5 Hyperlipidemia, unspecified; M54.5 Low back pain; I10 Essential (primary) hypertension; Z86.73 Personal history of transient ischemic attack (TIA), and cerebral infarction without residual deficits; Z79.899 Other long term (current) drug therapy; Z79.82 Long term (current) use of aspirin; Z88.2 Allergy status to sulfonamides; Z87.891 Personal history of nicotine dependence
CPT/HCPCS: 96376; 96374; 99285; 36415; 93005; 80061; 80053; 80048; 82550 ×2; 82553 ×2; 83735; 84484 ×2; 85025 ×2; 85610; 85730; 81001; 71046; 71260; 74177; G0378 ×2; J2270 ×2; Q9967

== ENCOUNTER → 2018-07-08 | Outpatient (CLI) | payer MEDICARE ==
--- NOTE | 2018-07-08 14:46 | US ---
EXAMINATION TYPE: US abdomen limited DATE OF EXAM: 07/08/2018 COMPARISON: CT 2018 CLINICAL HISTORY: [id number] Rt upper quadrant abdominal abd tenderness. Intermittent upper abdomen and c hest pain x couple years EXAM MEASUREMENTS: Liver Length: 14.7 cm Gallbladder Wall: 0.2 cm CBD: 0.6 cm Right Kidney: 11.2 x 4.8 x 4.7 cm Pancreas: wnl. No suspicious masses are evident. There is some subtle prominence of the pancreatic duct the head of the pancreas measuring 0.32 cm. Normal less than 0.3 cm. Liver: mildly heterogeneous Gallbladder: wnl Evidence for sonographic Gordon's sign: no CBD: borderline dilated Right Kidney: wnl IMPRESSION: 1. Mild prominence of the pancreatic duct within the head of the pancreas. Consider ERCP for addition al evaluation.
== END ==
LOC: RADUSWWP 09:18
PROVIDERS: ATTEND Family Medicine
DX: R93.3 Abnormal findings on diagnostic imaging of other parts of digestive tract (principal)
CPT/HCPCS: 76705

== ENCOUNTER → 2018-08-01 | Outpatient (CLI) | payer MEDICARE ==
--- NOTE | 2018-08-01 13:42 | MR ---
MR pancreas with and without contrast HISTORY: Abdominal pain Multiplanar multisequence and postcontrast images obtained pancreas. Correlation to CT chest abdomen pelvis 05/26/2018, ultrasound abdomen 07/08/2018 There is no dilation of the biliary ducts. No evident pancreatic mass. Gallbladder is normal. Small c ystic focus present within the liver is subcentimeter in size axial image 20. Loss of signal on out o f phase imaging within the liver suggests hepatic steatosis. There is no ascites. No retroperitoneal adenopathy. Aorta shows normal caliber. Adrenal glands and kidneys are normal. No abnormal enhancemen t following contrast administration there is a small hiatal hernia. There is a spinal curvature with degenerative disc change. Visualized appendix is normal. Spleen is within normal limits. Lung bases s how no pleural effusion. IMPRESSION: Small hiatal hernia. Hepatic steatosis. No evident pancreatic mass.
== END | disposition home or self-care (01) ==
LOC: RADMRIMAIN 08:11
PROVIDERS: ATTEND Internal Medicine Gastroenterology
DX: K44.9 Diaphragmatic hernia without obstruction or gangrene (principal); K76.0 Fatty (change of) liver, not elsewhere classified
CPT/HCPCS: 82565; 74183; 36415; A9585

== ENCOUNTER → 2018-09-27 | Outpatient (CLI) | payer MEDICARE ==
--- NOTE | 2018-09-27 14:37 | MR ---
EXAMINATION TYPE: MR angio head wo con DATE OF EXAM: 09/27/2018 COMPARISON: Prior MRA brain dated 10/05/2017 HISTORY: F/U aneurysm, TIA TECHNIQUE: Time of flight images focusing on the [place] were performed without contrast. FINDINGS: Stable compared to prior exam. No additional aneurysms are present. Patent anterior posteri or circulation again noted. origin of the right posterior cerebral artery is present. No eviden t dissection or embolism. IMPRESSION: No significant interval change. 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
== END | disposition home or self-care (01) ==
LOC: RADMRIMAIN 12:01
PROVIDERS: ATTEND Psychiatry & Neurology Neurology
DX: R93.1 Abnormal findings on diagnostic imaging of heart and coronary circulation (principal); G45.9 Transient cerebral ischemic attack, unspecified; I63.59 Cerebral infarction due to unspecified occlusion or stenosis of other cerebral artery; I67.1 Cerebral aneurysm, nonruptured
CPT/HCPCS: 70544

== ENCOUNTER → 2018-11-13 | Outpatient (CLI) | payer MEDICARE ==
--- NOTE | 2018-11-14 10:42 | MM ---
Reason for exam: screening (asymptomatic). Last mammogram was performed 1 year ago. History: Patient is postmenopausal. Physical Findings: A clinical breast exam by your physician is recommended on an annual basis and results should be correlated with mammographic findings. MG 3D Screening Mammo W/Cad Bilateral CC and MLO view(s) were taken. Prior study comparison: November 08, 2017, bilateral MG 3d screening mammo w/cad. October 12, 2016, bilateral MG 3d screening mammo w/cad. The breast tissue is heterogeneously dense. This may lower the sensitivity of mammography. Benign appearing bilateral calcifications. No suspicious abnormality. No significant changes when compared with prior studies. ASSESSMENT: Benign, BI-RAD 2 RECOMMENDATION: Routine screening mammogram of both breasts in 1 year.
== END | disposition home or self-care (01) ==
LOC: RADMAMWWP 09:20
PROVIDERS: ATTEND Family Medicine
DX: Z12.31 Encounter for screening mammogram for malignant neoplasm of breast (principal)
CPT/HCPCS: 77063; 77067

== ENCOUNTER → 2019-12-01 | Outpatient (CLI) | payer MEDICARE ==
--- NOTE | 2019-12-01 19:58 | MR ---
EXAMINATION TYPE: MR angio head wo con DATE OF EXAM: 12/01/2019 COMPARISON: 09/27/2018, 09/14/2016. HISTORY: 69-year-old female G45.9, I67.1. F/U comparison cerebral aneurysm to MRA 09-27-18 TECHNIQUE: High-resolution 3-D [id number] imaging of the [place]. Rotational 3-D reconst ructions generated on a dedicated workstation. FINDINGS: Slightly dominant left vertebral artery. Both vertebral and basilar arteries are patent. Persistent origin right posterior cerebral artery. A large left-sided posterior communicating a rtery is also demonstrated. The internal carotid arteries as well as the remainder of the anterior circulation are patent. No significant stenosis seen. Stable tiny 2 mm focal protuberance projecting inferiorly and medially from the supraclinoid right IC A, refer to series 204 image 1 and series 203 image 6. IMPRESSION: Stable tiny 2 mm infundibulum versus aneurysm projecting inferiorly and medially from the supraclinoi d right ICA. Unchanged back to 09/14/2016.
== END | disposition home or self-care (01) ==
LOC: RADMRIMAIN 19:05
PROVIDERS: ATTEND Psychiatry & Neurology Neurology
DX: G45.9 Transient cerebral ischemic attack, unspecified (principal); I67.1 Cerebral aneurysm, nonruptured
CPT/HCPCS: 70544

== ENCOUNTER → 2020-04-06 | Outpatient (CLI) | payer MEDICARE ==
--- NOTE | 2020-04-06 10:37 | BD ---
EXAMINATION TYPE: Axial Bone Density DATE OF EXAM: 04/06/2020 COMPARISON: 11.08.2017 CLINICAL HISTORY: 69 YR OLD FEMALE.....ICD-10 CODE: M85.9 DISORDER OF BONE Height: 62.4 Weight: 163 FRAX RISK QUESTIONS: NOTHING TO NOTE HERE RISK FACTORS HISTORY OF: ADOPTED Postmenopausal woman: YES, AT AGE 50 Hyperparathyroidism: NO Adrenal Insufficiency: NO MEDICATIONS: Additional Medications: BP MEDS, REFLUX MEDS, STATIN FOR CHOLESTEROL, CALCIUM AND VIT D Additional History: HYPERTENSION, CHOLESTEROL AND REFLUX, ARTHRITIS EXAM MEASUREMENTS: Bone mineral densitometry was performed using the [employer]. Bone mineral density as measured about the Lumbar spine is: ----- L1-L4(G/cm2): 1.148 T Score Values are as follows: ----- L1: -1.2 ----- L2: -0.7 ----- L3: 1.3 ----- L4: -0.7 ----- L1-L4: -0.3 Bone mineral density has: Decreased -10.7% since study of: 11.08.2017 Bone mineral density about the R hip (g/cm2): 1.130 Bone mineral density about the L hip (g/cm2): 1.056 T Score values are as follows: -----R Neck: -0.3 -----L Neck: -0.1 -----R Total: 1.0 -----L Total: 0.4 Bone mineral density has: Increased 1.6% since study of: 11.08.2017 FRAX%s: THERE IS A 7.3% CHANCE FOR A MAJOR OSTEOPOROTIC FX AND A 0.4% FOR HIP.....PROBABILITY FOR FX IN 10 YRS TIME IMPRESSION: Normal (Values between +1 and -1 indicate normal bone mass). Consider repeating this study in 5 year s or sooner if there is some new clinical indication. NOTE: T-SCORE=SD OF THE YOUNG ADULT MEAN.
== END | disposition home or self-care (01) ==
LOC: RADBDWWP 09:07
PROVIDERS: ATTEND Family Medicine
DX: M85.9 Disorder of bone density and structure, unspecified (principal)
CPT/HCPCS: 77080

== ENCOUNTER → 2021-01-05 | Outpatient (CLI) | payer MEDICARE ==
--- NOTE | 2021-01-09 14:35 | MM ---
Reason for exam: screening (asymptomatic). Last mammogram was performed 1 year ago. History: Patient is postmenopausal. Physical Findings: A clinical breast exam by your physician is recommended on an annual basis and results should be correlated with mammographic findings. MG 3D Screening Mammo W/Cad Bilateral CC and MLO view(s) were taken. Prior study comparison: December 29, 2019, bilateral MG 3d screening mammo w/cad. November 13, 2018, bilateral MG 3d screening mammo w/cad. November 08, 2017, bilateral MG 3d screening mammo w/cad. Finding: There are typically benign grouped/clustered course calcifications in the right breast. No significant changes in finding since December 29, 2019, November 13, 2018, and November 08, 2017. ASSESSMENT: Benign, BI-RAD 2 RECOMMENDATION: Routine screening mammogram of both breasts in 1 year.
== END | disposition home or self-care (01) ==
LOC: RADMAMWWP 08:58
PROVIDERS: ATTEND Family Medicine
DX: Z12.31 Encounter for screening mammogram for malignant neoplasm of breast (principal); Z78.0 Asymptomatic menopausal state
CPT/HCPCS: 77063; 77067

== ENCOUNTER → 2021-05-16 | Outpatient (CLI) | payer MEDICARE ==
--- NOTE | 2021-05-17 04:33 | MR ---
EXAMINATION TYPE: MR angio head wo con DATE OF EXAM: 05/16/2021 COMPARISON: 12/01/2019 HISTORY: Follow-up aneurysm MR angiographic images were obtained of the intracerebral arterial circulation. There is arterial flow in the anterior middle and posterior cerebral arteries. There is diminutive l eft anterior cerebral artery. The right posterior cerebral artery appears to fill entirely through th e right posterior communicating artery. There is arterial flow in both intracranial internal carotid arteries. There is small 1.5 mm infundibulum on the medial aspect of the right supraclinoid right internal walker tid artery unchanged. There is arterial flow in the vertebrobasilar artery system. There is no mass e ffect. There is no evidence of stenosis of the middle and posterior cerebral arteries. IMPRESSION: Small infundibulum on the right internal carotid artery unchanged and of doubtful significance. Diminutive left anterior cerebral artery could relate to hemodynamic stenosis. This appears unchanged .
== END | disposition home or self-care (01) ==
LOC: RADMRIMAIN 15:38
PROVIDERS: ATTEND Psychiatry & Neurology Neurology
DX: I67.1 Cerebral aneurysm, nonruptured (principal)
CPT/HCPCS: 70544

== ENCOUNTER → 2022-01-08 | Outpatient (CLI) | payer MEDICARE, OTHER ==
--- NOTE | 2022-01-09 08:19 | MM ---
Reason for Exam: Screening (asymptomatic). Last screening mammogram was performed 12 month(s) ago. Patient History: Menarche at age 13. First Full-Term at age 22. Postmenopausal. Risk Values: Sandra 5 year model risk: 1.6%. NCI Lifetime model risk: 4.3%. Prior Study Comparison: 11/13/2018 Bilateral Screening Mammogram, [facility]. 12/29/2019 Bilateral Screening Mammogram, [facility]. 01/05/2021 Bilateral Screening Mammogram, [facility]. Tissue Density: The breast tissue is heterogeneously dense. This may lower the sensitivity of mammography. Findings: Analyzed By CAD. There is no suspicious group of microcalcifications or new suspicious mass in either breast. Stable benign calcifications. Overall Assessment: Benign, BI-RAD 2 Management: Screening Mammogram of both breasts in 1 year. A clinical breast exam by your physician is recommended on an annual basis and results should be correlated with mammographic findings. Electronically signed and approved by: Trey Disla M.D. Radiologis
== END | disposition home or self-care (01) ==
LOC: RADMAMWWP 09:12
PROVIDERS: ATTEND Family Medicine
DX: Z12.31 Encounter for screening mammogram for malignant neoplasm of breast (principal); Z78.0 Asymptomatic menopausal state
CPT/HCPCS: 77063; 77067

== ENCOUNTER → 2023-01-14 | Outpatient (CLI) | payer MEDICARE ==
--- NOTE | 2023-01-14 12:41 | MM ---
Reason for Exam: Screening (asymptomatic). Last screening mammogram was performed 12 month(s) ago. Patient History: Menarche at age 13. First Full-Term at age 22. Postmenopausal. Risk Values: Sandra 5 year model risk: 1.6%. NCI Lifetime model risk: 4.1%. Prior Study Comparison: 12/29/2019 Bilateral Screening Mammogram, [facility]. 01/05/2021 Bilateral Screening Mammogram, [facility]. 01/08/2022 Bilateral MG 3D screening mammo w/cad, [facility]. Tissue Density: The breast tissue is heterogeneously dense. This may lower the sensitivity of mammography. Findings: Analyzed By CAD. There is no suspicious group of microcalcifications or new suspicious mass in either breast. Overall Assessment: Negative, BI-RAD 1 Management: Screening Mammogram of both breasts in [address] [facility] will attempt to contact patient to return for supplemental views and ultrasound if indicated. Patient should continue monthly self-breast exams. A clinical breast exam by your physician is recommended on an annual basis. This exam should not preclude additional follow-up of suspicious palpable abnormalities. Note on Sandra scores and lifetime risk: 1. A Sandra score greater than 3% is considered moderate risk. If this is the case, consider specialist referral to assess eligibility for a risk reducing agent. 2. If overall lifetime risk for the development of breast cancer is 20% or higher, the patient may qualify for future screening with alternating mammogram and breast MRI. Electronically signed and approved by: Ryan Gastelum DO
--- NOTE | 2023-01-14 14:22 | BD ---
EXAMINATION TYPE: Axial Bone Density DATE OF EXAM: 01/14/2023 CLINICAL HISTORY: 72 years old Female. ICD-10 CODE: Z13.820 OSTEOPOROSIS Height: 62.7 Weight: 159 FRAX RISK QUESTIONS: nothing to note here RISK FACTORS HISTORY OF: adopted Postmenopausal woman: yes...at 50 Hyperparathyroidism: no Adrenal Insufficiency: no MEDICATIONS: Additional Medications: bp meds, cholesterol and reflux meds, calcium and vit d, pain pills Additional History: arthritis, cholesterol, reflux, hypertension, chronic pain EXAM MEASUREMENTS: Bone mineral densitometry was performed using the [email or web address]. Bone mineral density as measured about the Lumbar spine is: ----- L1-L4(G/cm2): 1.039 T Score Values are as follows: ----- L1: -1.4 ----- L2: -1.4 ----- L3: -1.9 ----- L4: -0.3 ----- L1-L4: -1.2 Z Score Values are as follows: ----- L1: 0.1 ----- L2: 0.1 ----- L3: -0.4 ----- L4: 1.2 ----- L1-L4: 0.3 Bone mineral density has: Decreased -9.5% since study of: 04.06.2020 Bone mineral density about the R hip (g/cm2): 1.084 Bone mineral density about the L hip (g/cm2): 1.068 T Score values are as follows: -----R Neck: 0.4 -----L Neck: 0.1 -----R Total: 0.6 -----L Total: 0.5 Z Score values are as follows: -----R Neck: 2.0 -----L Neck: 1.8 -----R Total: 2.0 -----L Total: 1.9 Bone mineral density has: Decreased -1.6% since study of: 04.06.2020 FRAX%s: The graph provided illustrates a 7.0% chance for a major osteoporotic fx and a 0.4% chance fo r the hips probability for fx in 10 years time. IMPRESSION: Osteopenia (T Score between -2.5 and -1). There is slightly increased risk of fracture and the patient may be considered for treatment. Re-Screen 2-5 years. NOTE: T-SCORE=SD OF THE YOUNG ADULT MEAN.
== END | disposition home or self-care (01) ==
LOC: RADMAMWWP 11:48
PROVIDERS: ATTEND Family Medicine
DX: Z12.31 Encounter for screening mammogram for malignant neoplasm of breast (principal); Z13.820 Encounter for screening for osteoporosis; M85.88 Other specified disorders of bone density and structure, other site; Z78.0 Asymptomatic menopausal state
CPT/HCPCS: 77063; 77067; 77080

== ENCOUNTER → 2023-09-23 | Outpatient (CLI) | payer MEDICARE ==
--- NOTE | 2023-09-23 12:30 | MR ---
EXAMINATION TYPE: MR angio head wo con DATE OF EXAM: 09/23/2023 COMPARISON: 05/16/2021 HISTORY: 73-year-old female I67.1, F/U nonruptured cerebral aneurysm. TECHNIQUE: High-resolution 3-D [id number] imaging of the [place]. Rotational 3-D reconst ructions generated on a dedicated independent workstation. FINDINGS: Slightly dominant left vertebral artery. Otherwise, both vertebral and basilar arteries remain patent . On the left, there is prominent contribution from the posterior communicating artery. On the right, t here is persistent origin to the right posterior cerebral artery. Posterior circulation otherwi se patent. The bilateral internal carotid arteries are patent. Hypoplastic A1 segment left anterior cerebral art stan redemonstrated. Redemonstrated tiny 2 mm outpouching projecting posteromedially from the right ICA at the junction of the cavernous and ophthalmic segments. Interpreted axial image 100 and rotational series 204 image 6 . Otherwise, no significant narrowing or aneurysmal changes seen. IMPRESSION: 1. 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 2. 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
== END | disposition home or self-care (01) ==
LOC: RADMRIMAIN 11:33
PROVIDERS: ATTEND Psychiatry & Neurology Neurology
DX: I67.1 Cerebral aneurysm, nonruptured (principal); I66.19 Occlusion and stenosis of unspecified anterior cerebral artery
CPT/HCPCS: 70544

== ENCOUNTER → 2024-01-29 | Outpatient (CLI) | payer MEDICARE ==
--- NOTE | 2024-02-04 14:34 | MM ---
Reason for Exam: Screening (asymptomatic). Last screening mammogram was performed 12 month(s) ago. Patient History: Menarche at age 13. First Full-Term at age 22. Postmenopausal. Risk Values: Sandra 5 year model risk: 1.6%. NCI Lifetime model risk: 3.9%. Prior Study Comparison: 01/05/2021 Bilateral Screening Mammogram, [facility]. 01/08/2022 Bilateral MG 3D screening mammo w/cad, [facility]. 01/14/2023 Bilateral MG 3D screening mammo w/cad, [facility]. Tissue Density: The breasts are heterogeneously dense, which may obscure small masses. Findings: Analyzed By CAD. Right breast: There is no suspicious group of microcalcifications or new suspicious mass. Benign-appearing calcifications right breast. Left breast: There is no suspicious group of microcalcifications or new suspicious mass. Benign-appearing calcifications left breast. Overall Assessment: Benign, BI-RAD 2 Management: Screening Mammogram of both breasts in [address] [facility] will attempt to contact patient to return for supplemental views and ultrasound if indicated. Patient should continue monthly self-breast exams. A clinical breast exam by your physician is recommended on an annual basis. This exam should not preclude additional follow-up of suspicious palpable abnormalities. Note on Sandra scores and lifetime risk: 1. A Sandra score greater than 3% is considered moderate risk. If this is the case, consider specialist referral to assess eligibility for a risk reducing agent. 2. If overall lifetime risk for the development of breast cancer is 20% or higher, the patient may qualify for future screening with alternating mammogram and breast MRI. Electronically signed and approved by: Ryan Gastelum DO
== END | disposition home or self-care (01) ==
LOC: RADMAMWWP 09:19
PROVIDERS: ATTEND Family Medicine
DX: Z12.31 Encounter for screening mammogram for malignant neoplasm of breast
CPT/HCPCS: 77063; 77067